=== PATIENT | female | born 1960 | race Caucasian/White ===

== ENCOUNTER 2017-09-01 09:41 | Emergency (ER) | payer SELFPAY ==
[~2017-09-01] VITALS: Ht 172.7 cm; Wt 87.5 kg
[2017-09-01 09:42] VITALS: BP 198/122; PULSE 106; RESP 20; TEMP 98.2; O2SAT 93
[2017-09-01 09:50] VITALS: BP 209/116
[2017-09-01 09:57] VITALS: BP 218/128; PULSE 98; RESP 19; O2SAT 95
[2017-09-01] MEDS ORDERED: CITA20TA4 PO (10:03)
[2017-09-01] MEDS ORDERED: RISP1TAB2 PO (10:03)
[2017-09-01] MEDS ORDERED: RISP4TAB2 PO (10:03)
--- NOTE | 2017-09-01 10:21 | PD ---
HPI Chief Complaint: Hypertension Time Seen by Provider: 09:59 Travel History International Travel<30 days: No Contact w/Intl Traveler<30days: No Traveled to known affect area: No History of Present Illness HPI 57-year-old female presents to the emergency department, sent from [facility], for high blood pressure reading. Patient denies history of hypertension and has never been diagnosed or taken medication. She denies chest pain, shortness of breath, abdominal pain, vomiting, headache, change in vision, focal deficits or weakness, syncope. Denies pain. Has not taken any medications or treatments to alleviate her symptoms. Symptoms are moderate in severity. No known relieving or aggravating factors. Reports occasional alcohol use. Reports occasional smoking pot. Reports tobacco use, pack per day. History of depression, bipolar disorder, schizophrenia. Denies other significant past medical history. No primary care provider. No known allergies. Has no medical complaints. No other modifying factors or associated signs and symptoms. PFSH Past Medical History Bipolar Disorder: Yes Anxiety: Yes Depression: Yes Diminished Hearing: No Immunizations Current: Yes Schizophrenia: Yes ?: Not Past Surgical History Surgical History: No Previous Surgery Social History Alcohol Use: Yes (occ) Tobacco Use: Yes (1 ppd) Substance Use: Yes (maricharleneana) Allergies-Medications (Allergen,Severity, Reaction): Coded Allergies: No Known Allergies (Unverified , 09/01/17) Reported Meds & Prescriptions Reported Meds & Active Scripts Active Norvasc (Amlodipine Besylate) 5 Mg Tab 5 Mg PO DAILY Reported Risperidone 1 Mg Tab 1 Mg PO DAILY Risperidone 4 Mg Tab 4 Mg PO HS Citalopram (Citalopram Hydrobromide) 20 Mg Tab 20 Mg PO DAILY Review of Systems Except as stated in HPI: all other systems reviewed are Neg Physical Exam Narrative GENERAL: Well-nourished, well-developed female patient, in no acute distress SKIN: Warm and dry. HEAD: Atraumatic. Normocephalic. EYES: Pupils equal and round. No scleral icterus. No injection or drainage. ENT: Mucosa pink and moist. Airway patent. NECK: Trachea midline. CARDIOVASCULAR: Regular rate and rhythm. No murmur appreciated. RESPIRATORY: No accessory muscle use. Clear to auscultation. Breath sounds equal bilaterally. GASTROINTESTINAL: Abdomen soft, non-tender, nondistended. Hepatic and splenic margins not palpable. Bowel sounds are active 4 quadrants. MUSCULOSKELETAL: No obvious deformities. No clubbing. No cyanosis. No edema. NEUROLOGICAL: Awake and alert. Oriented 3. No obvious cranial nerve deficits. Motor grossly within normal limits. Normal speech. PSYCHIATRIC: Appropriate mood and affect; insight and judgment normal. Data Data Last Documented VS Vital Signs Date Time Temp Pulse Resp B/P (MAP) Pulse Ox O2 Delivery O2 Flow Rate FiO2 09/01/17 11:01 88 18 184/83 (116) 97 Room Air 09/01/17 09:42 98.2 Orders Orders Electrocardiogram (09/01/17 10:19) Basic Metabolic Panel (Bmp) (09/01/17 10:19) Complete Blood Count With Diff (09/01/17 10:19) Amlodipine (Norvasc) (09/01/17 10:30) Acetaminophen (Tylenol) (09/01/17 11:45) Labs Laboratory Tests Test 09/01/17 10:42 White Blood Count 5.5 TH/MM3 Red Blood Count 5.08 MIL/MM3 Hemoglobin 18.9 GM/DL Hematocrit 53.3 % Mean Corpuscular Volume 105.0 FL Mean Corpuscular Hemoglobin 37.2 PG Mean Corpuscular Hemoglobin Concent 35.5 % Red Cell Distribution Width 15.2 % Platelet Count 284 TH/MM3 Mean Platelet Volume 9.6 FL Neutrophils (%) (Auto) 57.4 % Lymphocytes (%) (Auto) 32.0 % Monocytes (%) (Auto) 9.8 % Eosinophils (%) (Auto) 0.2 % Basophils (%) (Auto) 0.6 % Neutrophils # (Auto) 3.2 TH/MM3 Lymphocytes # (Auto) 1.8 TH/MM3 Monocytes # (Auto) 0.5 TH/MM3 Eosinophils # (Auto) 0.0 TH/MM3 Basophils # (Auto) 0.0 TH/MM3 CBC Comment DIFF FINAL Differential Comment Blood Urea Nitrogen 7 MG/DL Creatinine 0.92 MG/DL Random Glucose 131 MG/DL Calcium Level 9.7 MG/DL Sodium Level 139 MEQ/L Potassium Level 3.8 MEQ/L Chloride Level 101 MEQ/L Carbon Dioxide Level 28.8 MEQ/L Anion Gap 9 MEQ/L Estimat Glomerular Filtration Rate 63 ML/MIN MDM Medical Decision Making Medical Screen Exam Complete: Yes Emergency Medical Condition: Yes Medical Record Reviewed: Yes Differential Diagnosis Hypertension, renal disease, medical clearance Narrative Course 57-year-old female with elevated blood pressure. Blood pressure reading in the ER is 218/128. Patient is asymptomatic. I discussed the patient with Dr. Saini, the attending physician, and he agrees with my plan of care. CBC, BMP, EKG ordered. 1145: Patient Is now complaining of headache; she said she had a headche when she arrived but "forgot to tell" me even though I asked her. Rates headache . Tylenol ordered. Discussed labs with Dr. Saini and he agrees the patient discharged. Discussed lab findings with the patient. Patient to follow up outpatient. Norvasc prescribed for home. Instructed patient to follow up with primary care provider. Patient verbalizes understanding and agreement with treatment plan. Patient is medically cleared and stable for discharge. Discussed reasons to return to the emergency department. Patient agrees with treatment plan. The patients vital signs are stable and the patient is stable for outpatient follow-up and treatment. Patient discharged home, stable and in no acute distress. Diagnosis Primary Impression: High blood pressure Qualified Codes: I10 - Essential (primary) hypertension Referrals: [facility] Primary Care Physician Patient Instructions: General Instructions, Hypertension (ED) Additional Instructions: Take blood pressure medications as prescribed Take blood pressure routinely and log the time and your blood pressure readings ; take your blood pressure log to your primary care provider at your next visit Follow-up with your primary care provider Return to the emergency department immediately with worsening of symptoms Med/Other Pt SpecificInfo: Prescription(s) given Scripts Amlodipine (Norvasc) 5 Mg Tab 5 MG PO DAILY for Blood Pressure Management, #30 TAB 0 Refills Prov: Melissa Todd 09/01/17 Disposition: 01 DISCHARGE HOME Condition: Stable Melissa Todd Sep 01, 2017 10:21
[2017-09-01] MEDS ORDERED: amLODIPine BESYLATE 5 MG TAB PO ONE (10:30)
[2017-09-01] MEDS ORDERED: AMLO5 PO (10:30)
[2017-09-01 10:54] LABS: AUTOMATED NEUTROPHIL # 3.2 TH/MM3 (1.8-7.7); BASOPHIL % 0.6 % (0.0-2.0); EOSINOPHIL % 0.2 % (0.0-4.0); HEMATOCRIT 53.3 % (35.0-46.0); HEMOGLOBIN 18.9 GM/DL (11.6-15.3); LYMPHOCYTE # 1.8 TH/MM3 (1.0-4.8); MEAN CORPUSCULAR HEMOGLOBIN 37.2 PG (27.0-34.0); MEAN CORPUSCULAR HGB CONC 35.5 % (32.0-36.0); MEAN PLATELET VOLUME 9.6 FL (7.0-11.0); MONO % 9.8 % (0.0-8.0); MONOCYTE # 0.5 TH/MM3 (0-0.9); NEUT % 57.4 % (16.0-70.0); PLATELET COUNT 284 TH/MM3 (150-450); RED BLOOD COUNT 5.08 MIL/MM3 (4.00-5.30); RED CELL DISTRIBUTION WIDTH 15.2 % (11.6-17.2); WHITE BLOOD COUNT 5.5 TH/MM3 (4.0-11.0)
[2017-09-01 11:01] VITALS: BP_SYST 184; BP_DIAS 23; BP_DIAS 83; PULSE 88; RESP 18; O2SAT 97
[2017-09-01 11:13] LABS: BICARBONATE 28.8 MEQ/L (21.0-32.0); CALCIUM 9.7 MG/DL (8.5-10.1); CREATININE 0.92 MG/DL (0.50-1.00)
[2017-09-01] MEDS ORDERED: ACETAMINOPHEN 325 MG TAB PO ONE (11:45)
--- NOTE | 2017-09-01 12:47 | EKG ---
Date Performed: 09/01/2017 Time Performed: 10:33:46 PTAGE: 57 years EKG: Sinus rhythm BORDERLINE LEFT AXIS DEVIATION BORDERLINE ECG NO PREVIOUS TRACING DOCTOR: Carlos Sen Interpretating Date/Time 09/01/2017 12:46:10
== END 2017-09-01 12:06 | disposition home or self-care (01) ==
LOC: NEPD 09:41
DX: I10 Essential (primary) hypertension (principal); R94.31 Abnormal electrocardiogram [ECG] [EKG]; F31.9 Bipolar disorder, unspecified; F20.9 Schizophrenia, unspecified; F41.9 Anxiety disorder, unspecified; F17.210 Nicotine dependence, cigarettes, uncomplicated
CPT/HCPCS: 80048; 85025; 93005; 99284

== ENCOUNTER 2017-09-17 10:55 | Observation (INO) | payer SELFPAY ==
[~2017-09-17] VITALS: Ht 172.7 cm; Wt 87.5 kg
[2017-09-17] VITALS (12 sets, daily range): BP systolic 143–193; BP diastolic 88–110; PULSE 82–113; RESP 17–20; TEMP 97.9–99.3; O2SAT 94–98
[~2017-09-17 10:55] MED LIST: AMLO5 PO; CITA20TA4 PO; RISP1TAB2 PO; RISP4TAB2 PO
[2017-09-17] MEDS ORDERED: BENZTROPINE MESYLATE 2 MG/2 ML VIAL IV PUSH ONE ×2 (11:30→12:00)
[2017-09-17 11:39] LABS: AUTOMATED NEUTROPHIL # 6.4 TH/MM3 (1.8-7.7); BASOPHIL # 0.1 TH/MM3 (0-0.2); BASOPHIL % 0.6 % (0.0-2.0); EOSINOPHIL % 0.1 % (0.0-4.0); HEMATOCRIT 51.8 % (35.0-46.0); HEMOGLOBIN 17.9 GM/DL (11.6-15.3); LYMPH % 18.4 % (9.0-44.0); LYMPHOCYTE # 1.6 TH/MM3 (1.0-4.8); MEAN CELL VOLUME 106.3 FL (80.0-100.0); MEAN CORPUSCULAR HEMOGLOBIN 36.7 PG (27.0-34.0); MEAN CORPUSCULAR HGB CONC 34.5 % (32.0-36.0); MEAN PLATELET VOLUME 8.5 FL (7.0-11.0); MONO % 6.2 % (0.0-8.0); MONOCYTE # 0.5 TH/MM3 (0-0.9); NEUT % 74.7 % (16.0-70.0); PLATELET COUNT 253 TH/MM3 (150-450); RED BLOOD COUNT 4.87 MIL/MM3 (4.00-5.30); RED CELL DISTRIBUTION WIDTH 15.6 % (11.6-17.2); WHITE BLOOD COUNT 8.5 TH/MM3 (4.0-11.0)
[2017-09-17 11:46] LABS: INTERNATIONAL NORMALIZED RATIO 1.2 RATIO; PROTHROMBIN TIME - PATIENT 12.2 SEC (9.8-11.6)
--- NOTE | 2017-09-17 12:05 | RADRPT ---
EXAM DATE/TIME: 09/17/2017 11:36 [facility] COMPARISON: No previous studies available for comparison. INDICATIONS : New onset tremors left arm.Right facial droop was observed earlier. RADIATION DOSE: 38.38 CTDIvol (mGy) MEDICAL HISTORY : Hypertension. Schizophrenia SURGICAL HISTORY : None. ENCOUNTER: Initial ACUITY: 3 weeks PAIN SCALE: 0/10 LOCATION: cranial TECHNIQUE: Multiple contiguous axial images were obtained of the head. Using automated exposure control and adj ustment of the mA and/or kV according to patient size, radiation dose was kept as low as reasonably a chievable to obtain optimal diagnostic quality images. DICOM format image data is available electro nically for review and comparison. FINDINGS: CEREBRUM: The ventricles are normal for age. No evidence of midline shift, mass lesion, hemorrhage or acute in farction. No extra-axial fluid collections are seen. POSTERIOR FOSSA: The cerebellum and brainstem are intact. The 4th ventricle is midline. The cerebellopontine angle i s unremarkable. EXTRACRANIAL: The visualized portion of the orbits is intact. SKULL: The calvaria is intact. No evidence of skull fracture. CONCLUSION: Normal examination for a patient of this age. Iván Martinez MD on September 17, 2017 at 12:01 Board Certified Radiologist. This report was verified electronically.
--- NOTE | 2017-09-17 12:26 | RADRPT ---
EXAM DATE/TIME: 09/17/2017 11:57 [facility] COMPARISON: No previous studies available for comparison. INDICATIONS : Tremors in left arm 3 weeks. MEDICAL HISTORY : Hypertension. Schizophrenia SURGICAL HISTORY : None. ENCOUNTER: Initial ACUITY: 1 day PAIN SCORE: 0/10 LOCATION: Bilateral chest FINDINGS: There is a small non-consolidative infiltrate in the lower left lung adjacent to, but not obscuring d izziness of the left hemidiaphragm. The right lung is clear. The heart is normal size. No blunting of the costophrenic angles. CONCLUSION: Subsegmental infiltrate at the left lung base. Tee Mcclain MD on September 17, 2017 at 12:24 Board Certified Radiologist. This report was verified electronically.
--- NOTE | 2017-09-17 12:30 | PD ---
HPI Chief Complaint: Neuro Symptoms/ Deficits Time Seen by Provider: 11:11 Travel History International Travel<30 days: No Contact w/Intl Traveler<30days: No Traveled to known affect area: No History of Present Illness HPI 57-year-old male that presents to the ED for evaluation of possible there is symptoms. Per patient she's had a tremor to her left hand and arm for the past 3 weeks. Per patient she's never had this before. She does have a history of bipolar disorder and schizophrenia and takes multiple psychiatric medications. She states that she went to her doctor today in the hospital in the [facility] clinic and she was sent here for evaluation of this as they noted she also had some facial drop. She denies any medical issues other than hypertension. No chest pain or SOB. No history of CVA. No history of this in the past. States been compliant with her medications. No suicidal or homicidal ideation. No abdominal pain. No pain of any kind. Patient's facial droop is completely resolved if she smiles. Only noticeable when she has a resting face. Unclear if this is chronic for her but per significant other she hasn't had this before. No blurry vision or double vision. No other medical issues. PFSH Past Medical History Bipolar Disorder: Yes Anxiety: Yes Depression: Yes Diminished Hearing: No Hypertension: Yes Immunizations Current: Yes Schizophrenia: Yes Social History Alcohol Use: Yes (occ) Tobacco Use: Yes (1 ppd) Substance Use: Yes (THC on occasion) Allergies-Medications (Allergen,Severity, Reaction): Coded Allergies: No Known Allergies (Unverified , 09/01/17) Reported Meds & Prescriptions Reported Meds & Active Scripts Active Norvasc (Amlodipine Besylate) 5 Mg Tab 5 Mg PO DAILY Reported Risperidone 4 Mg Tab 4 Mg PO HS Citalopram (Citalopram Hydrobromide) 20 Mg Tab 20 Mg PO DAILY Review of Systems Except as stated in HPI: all other systems reviewed are Neg Physical Exam Narrative GENERAL: SKIN: Warm and dry. HEAD: Atraumatic. Normocephalic. EYES: Pupils equal and round. No scleral icterus. No injection or drainage. ENT: No nasal bleeding or discharge. Mucous membranes pink and moist. Tongue is midline. No uvula deviation. Cranial nerves intact, facial drop noted only when patient rests her face. Smiling and frowning does not provide any deficits , unclear if this is chronic. NECK: Trachea midline. No JVD. CARDIOVASCULAR: Regular rate and rhythm. No murmurs, S3, S4. RESPIRATORY: No accessory muscle use. Clear to auscultation. Breath sounds equal bilaterally. GASTROINTESTINAL: Abdomen soft, non-tender, nondistended. Hepatic and splenic margins not palpable. MUSCULOSKELETAL: Extremities without clubbing, cyanosis, or edema. No obvious deformities. Full range of motion of the upper and lower extremities bilaterally. 2+ pulses bilaterally. tremor noted to the left and right arm. Appears to worsen with movement. More noticeable on left arm. NEUROLOGICAL: Awake and alert. No obvious cranial nerve deficits. Motor grossly within normal limits. Five out of 5 muscle strength in the arms and legs. Normal speech. PSYCHIATRIC: Appropriate mood and affect; insight and judgment normal. Data Data Last Documented VS Vital Signs Date Time Temp Pulse Resp B/P (MAP) Pulse Ox O2 Delivery O2 Flow Rate FiO2 09/17/17 12:39 18 97 Room Air 09/17/17 11:12 100 09/17/17 10:56 97.9 Orders Orders Electrocardiogram (09/17/17 11:17) Complete Blood Count With Diff (09/17/17 11:17) Comprehensive Metabolic Panel (09/17/17 11:17) Ckmb (Isoenzyme) Profile (09/17/17 11:17) Troponin I (09/17/17 11:17) Prothrombin Time / Inr (Pt) (09/17/17 11:17) Act Partial Throm Time (Ptt) (09/17/17 11:17) Magnesium (Mg) (09/17/17 11:17) Thyroid Stimulating Hormone (09/17/17 11:17) Chest, Single Ap (09/17/17 11:17) Ct Brain W/O Iv Contrast(Rout) (09/17/17 11:17) Iv Access Insert/Monitor (09/17/17 11:17) Ecg Monitoring (09/17/17 11:17) Oximetry (09/17/17 11:17) Benztropine Inj (Cogentin Inj) (09/17/17 11:30) Benztropine Inj (Cogentin Inj) (09/17/17 12:00) CKMB (09/17/17 11:24) CKMB% (09/17/17 11:24) Sodium Chlor 0.9% 1000 Ml Inj (Ns 1000 M (09/17/17 13:00) Potassium Chloride (Kcl) (09/17/17 13:00) Admit Order (Ed Use Only) (09/17/17 14:13) Labs Laboratory Tests Test 09/17/17 11:24 White Blood Count 8.5 TH/MM3 Red Blood Count 4.87 MIL/MM3 Hemoglobin 17.9 GM/DL Hematocrit 51.8 % Mean Corpuscular Volume 106.3 FL Mean Corpuscular Hemoglobin 36.7 PG Mean Corpuscular Hemoglobin Concent 34.5 % Red Cell Distribution Width 15.6 % Platelet Count 253 TH/MM3 Mean Platelet Volume 8.5 FL Neutrophils (%) (Auto) 74.7 % Lymphocytes (%) (Auto) 18.4 % Monocytes (%) (Auto) 6.2 % Eosinophils (%) (Auto) 0.1 % Basophils (%) (Auto) 0.6 % Neutrophils # (Auto) 6.4 TH/MM3 Lymphocytes # (Auto) 1.6 TH/MM3 Monocytes # (Auto) 0.5 TH/MM3 Eosinophils # (Auto) 0.0 TH/MM3 Basophils # (Auto) 0.1 TH/MM3 CBC Comment DIFF FINAL Differential Comment Prothrombin Time 12.2 SEC Prothromb Time International Ratio 1.2 RATIO Activated Partial Thromboplast Time 24.4 SEC Blood Urea Nitrogen 8 MG/DL Creatinine 1.23 MG/DL Random Glucose 131 MG/DL Total Protein 7.9 GM/DL Albumin 3.1 GM/DL Calcium Level 8.6 MG/DL Magnesium Level 1.3 MG/DL Alkaline Phosphatase 135 U/L Aspartate Amino Transf (AST/SGOT) 145 U/L Alanine Aminotransferase (ALT/SGPT) 104 U/L Total Bilirubin 1.3 MG/DL Sodium Level 136 MEQ/L Potassium Level 3.2 MEQ/L Chloride Level 99 MEQ/L Carbon Dioxide Level 26.3 MEQ/L Anion Gap 11 MEQ/L Estimat Glomerular Filtration Rate 45 ML/MIN Total Creatine Kinase 121 U/L Creatine Kinase MB 1.8 NG/ML Troponin I LESS THAN 0.02 NG/ML Thyroid Stimulating Hormone 3rd Gen 0.842 uIU/ML MDM Medical Decision Making Medical Screen Exam Complete: Yes Emergency Medical Condition: Yes Medical Record Reviewed: Yes Interpretation(s) CBC & BMP Diagram 09/17/17 11:24 Total Protein 7.9, Albumin 3.1 L, Calcium Level 8.6, Magnesium Level 1.3 L, Alkaline Phosphatase 135 H, Aspartate Amino Transf (AST/SGOT) 145 H, Alanine Aminotransferase (ALT/SGPT) 104 H, Total Bilirubin 1.3 H Last Impressions Head CT 09/17/[id number] Signed Impressions: Service Date/Time: Sunday, September 17, 2017 11:36 - CONCLUSION: Normal examination for a patient of this age. Iván Martinez MD Chest X-Ray [id number]/17/[id number] Signed Impressions: Service Date/Time: Sunday, September 17, 2017 11:57 - CONCLUSION: Subsegmental infiltrate at the left lung base. Tee Mcclain MD troponin and CKMB negative TSH WNL Differential Diagnosis Dyskinesia versus tremor versus CVA versus neuropathy versus paresthesia versus essential tremor versus Parkinson's versus medication side effect Narrative Course 57-year-old female that presents to the ED for evaluation of tremor and possible facial droop. Patient was properly examined and was found to have signs and symptoms for several tremor. Suspected this may be related to her antipsychotics. She does appear to have some facial droop but this appears to be chronic for her. She is able to smile and frown with no deficits. No cranial nerve deficits and the only time I can find the facial droop is whenever she has her resting phase. Per significant other this is new. Could potentially be early Allen's palsy. Regardless of the recommend labs and imaging to rule out any sign of acute disease. Labs and imaging were ordered. My attending recommends 1 mg IV of cogentin to see if it will improve symptoms. Labs and imaging came back negative for acute disease. Patient still having significant tremor. Unclear as to the right facial droop. Again patient only had symptoms since she is resting. Otherwise she does not have the droop. Otherwise she is neurovascularly intact. My attending Dr Byrd recommends admitting for further eval and neuro consult. Dr Lee agrees to admission. Diagnosis Primary Impression: Tremor of both hands Additional Impression: Facial droop Admitting Information Admitting Physician Requests: Rashawn Pratt Sep 17, 2017 12:29
[2017-09-17 12:34] LABS: ALBUMIN 3.1 GM/DL (3.4-5.0); ALKALINE PHOSPHATASE 135 U/L (45-117); ALT (GPT) 104 U/L (10-53); AST (GOT) 145 U/L (15-37); BICARBONATE 26.3 MEQ/L (21.0-32.0); BLOOD UREA NITROGEN 8 MG/DL (7-18); CALCIUM 8.6 MG/DL (8.5-10.1); CHLORIDE 99 MEQ/L (98-107); CREATININE 1.23 MG/DL (0.50-1.00); GLOMERULAR FILTRATION RATE 45 ML/MIN (>89); GLUCOSE,RANDOM 131 MG/DL (74-106); MAGNESIUM 1.3 MG/DL (1.5-2.5); SODIUM (NA) 136 MEQ/L (136-145); TOTAL BILIRUBIN ADULT 1.3 MG/DL (0.2-1.0); TOTAL PROTEIN 7.9 GM/DL (6.4-8.2); TROPONIN I LESS THAN 0.02 NG/ML (0.02-0.05)
[2017-09-17] MEDS ORDERED: SODIUM CHLOR 0.9% 1000 ML INJ 1,000 ML IV ONE (13:00)
[2017-09-17] MEDS ORDERED: POTASSIUM CHLORIDE 20 MEQ CONTROLLED RELEASE TAB PO ONE ×2 (13:00→14:45)
--- NOTE | 2017-09-17 14:55 | RADRPT ---
EXAM DATE/TIME: 09/17/2017 14:22 [facility] COMPARISON: No previous studies available for comparison. INDICATIONS : Transient ischemic attack. MEDICAL HISTORY : Hypertension. Schizophrenia. Bioplar disorder. Anxiety. Depression. Substance use. Tobacco use. SURGICAL HISTORY : None. ENCOUNTER: Initial ACUITY: 1 day PAIN SCORE: 0/10 LOCATION: Bilateral neck PEAK SYSTOLIC VELOCITIES (cm/sec): ICA/CCA RATIO: Right: 1.4 Left: 1.0 ICA: Right: 88.2 Left: 80.1 CCA: Right: 62.2 Left: 78.5 ECA: Right: 55.6 Left: 96.8 VERTEBRAL: Right: 47.9 antegrade Left: 32.8 antegrade Elevated flow velocities and ICA/CCA ratios have been found to correlate with increased degrees of vessel stenosis, calculated as percentage of diameter relative to a normal segment of distal ICA/CCA FINDINGS: RIGHT CAROTID: No significant stenosis is visualized. The waveforms are within normal limits. LEFT CAROTID: No significant stenosis is visualized. The waveforms are within normal limits. VERTEBRAL ARTERIES: Antegrade flow is seen in both vertebral arteries. MISCELLANEOUS: None. CONCLUSION: No evidence of flow-limiting carotid stenosis. Roby Knapp MD on September 17, 2017 at 14:53 Board Certified Radiologist. This report was verified electronically.
--- NOTE | 2017-09-17 14:58 | HHI.HP ---
HPI Service [facility] ([place], [place])ists Primary Care Physician No Primary Care Physician Admission Diagnosis tremor, right facial drop, unknown etiology Diagnoses: Travel History International Travel<30 Days: No Contact w/Intl Traveler <30 Da: No Traveled to Known Affected Are: No History of Present Illness Patient is a 57-year-old female with past medical history of schizophrenia, hypertension, bipolar disorder presented to the emergency room for left-sided tremors 3 weeks. She follows at the [facility]. There, they noted that she had a right-sided drooping of her face. Patient was instructed to come to the emergency room for further evaluation. Upon questioning, she tells me that my left arm is shaking out of control. She denies any changes to her medications. She is from [place] and recently moved here. She is being followed as [facility] by a an MAGNETIC TESTING TECHNICIAN who refills her medications. She states that she has been taking her medications regularly and no longer has auditory or visual hallucinations. She notes that whenever she lifts her arm the movements decreased however at rest the movements are a lot worse. Nothing is noted on the right arm. She did not note the facial droop. She denies any change in her vision or blurriness. Denies any nausea vomiting, chest pain or shortness of breath, rash increased urinary frequency or burning with urination. Review of Systems Except as stated in HPI: all other systems reviewed are Neg Past Family Social History Past Medical History schizophrenia, hypertension, bipolar disorder Past Surgical History No surgery Reported Medications Reported Meds & Active Scripts Active Norvasc (Amlodipine Besylate) 5 Mg Tab 5 Mg PO DAILY Reported Risperidone 4 Mg Tab 4 Mg PO HS Citalopram (Citalopram Hydrobromide) 20 Mg Tab 20 Mg PO DAILY Allergies: Coded Allergies: No Known Allergies (Unverified , 09/01/17) Family History Patient states that both her parents were healthy. Social History States she smokes a pack a day for the past 40 years. Denies illegal drug use. Drinks alcohol occasionally Physical Exam Vital Signs Vital Signs Date Time Temp Pulse Resp B/P (MAP) Pulse Ox O2 Delivery O2 Flow Rate FiO2 09/17/17 12:39 18 97 Room Air 09/17/17 11:12 100 18 168/88 (114) 98 Room Air 09/17/17 11:07 103 18 96 Room Air 09/17/17 10:56 97.9 113 20 157/109 (125) 96 Room Air Physical Exam GENERAL: Laying in bed, appears comfortable SKIN: No rashes, ecchymoses or lesions. Cool and dry. HEAD: Atraumatic. Normocephalic. No temporal or scalp tenderness. EYES: Pupils equal round and reactive. Extraocular motions intact. No scleral icterus. No injection or drainage. ENT: Nose without drainage. Airway patent. NECK: Trachea midline. CARDIOVASCULAR: Regular rate and rhythm without murmurs RESPIRATORY: Clear to auscultation. Breath sounds equal bilaterally. No wheezes GASTROINTESTINAL: Abdomen soft, non-tender, nondistended. No guarding. MUSCULOSKELETAL: Resting tremors noted on the left arm. Currently none on the right arm. With movement the tremors do seem to slow down but are still present. I do note right sided drooping whenever patient is not smiling however all cranial nerves otherwise seems to be okay. Extremities without edema. No joint tenderness, effusion, or edema noted. No calf tenderness. Negative Homans sign bilaterally. NEUROLOGICAL: Awake and alert. Cranial nerves II through XII intact. Motor and sensory grossly within normal limits. Normal speech. Laboratory Laboratory Tests Test 09/17/17 11:24 White Blood Count 8.5 Red Blood Count 4.87 Hemoglobin 17.9 Hematocrit 51.8 Mean Corpuscular Volume 106.3 Mean Corpuscular Hemoglobin 36.7 Mean Corpuscular Hemoglobin Concent 34.5 Red Cell Distribution Width 15.6 Platelet Count 253 Mean Platelet Volume 8.5 Neutrophils (%) (Auto) 74.7 Lymphocytes (%) (Auto) 18.4 Monocytes (%) (Auto) 6.2 Eosinophils (%) (Auto) 0.1 Basophils (%) (Auto) 0.6 Neutrophils # (Auto) 6.4 Lymphocytes # (Auto) 1.6 Monocytes # (Auto) 0.5 Eosinophils # (Auto) 0.0 Basophils # (Auto) 0.1 CBC Comment DIFF FINAL Differential Comment Prothrombin Time 12.2 Prothromb Time International Ratio 1.2 Activated Partial Thromboplast Time 24.4 Blood Urea Nitrogen 8 Creatinine 1.23 Random Glucose 131 Total Protein 7.9 Albumin 3.1 Calcium Level 8.6 Magnesium Level 1.3 Alkaline Phosphatase 135 Aspartate Amino Transf (AST/SGOT) 145 Alanine Aminotransferase (ALT/SGPT) 104 Total Bilirubin 1.3 Sodium Level 136 Potassium Level 3.2 Chloride Level 99 Carbon Dioxide Level 26.3 Anion Gap 11 Estimat Glomerular Filtration Rate 45 Total Creatine Kinase 121 Creatine Kinase MB 1.8 Troponin I LESS THAN 0.02 Thyroid Stimulating Hormone 3rd Gen 0.842 Result Diagram: 09/17/17 1124 09/17/17 1124 Imaging Last Impressions Head CT 09/17/17 111 Signed Impressions: Service Date/Time: Sunday, September 17, 2017 11:36 - CONCLUSION: Normal examination for a patient of this age. Iván Martinez MD Chest X-Ray [id number]/17/[id number] Signed Impressions: Service Date/Time: Sunday, September 17, 2017 11:57 - CONCLUSION: Subsegmental infiltrate at the left lung base. Tee Mcclain MD Caprini VTE Risk Assessment Caprini VTE Risk Assessment: Mod/High Risk (score >= 2) Caprini Risk Assessment Model Point Value = 1 Point Value = 2 Point Value = 3 Point Value = 5 Age 41-60 Minor surgery BMI > 25 kg/m2 Swollen legs Varicose veins or History of unexplained or recurrent spontaneous Oral contraceptives or hormone replacement Sepsis (< 1 month) Serious lung disease, including pneumonia (< 1 month) Abnormal pulmonary function Acute myocardial infarction Congestive heart failure (< 1 month) History of inflammatory bowel disease Medical patient at bed rest Age 61-74 Arthroscopic surgery Major open surgery (> 45 min) Laparoscopic surgery (> 45 min) Malignancy Confined to bed (> 72 hours) Immobilizing plaster cast Central venous access Age >= 75 History of VTE Family history of VTE Factor V Leiden Prothrombin [id number] Lupus anticoagulant Anticardiolipin antibodies Elevated serum homocysteine Heparin-induced thrombocytopenia Other congenital or acquired thrombophilia Stroke (< 1 month) Elective arthroplasty Hip, pelvis, or leg fracture Acute spinal cord injury (< 1 month) Prophylaxis Regimen Total Risk Factor Score Risk Level Prophylaxis Regimen 0-1 Low Early ambulation 2 Moderate Order ONE of the following: *Sequential Compression Device (SCD) *Heparin 5000 units SQ BID 3-4 Higher Order ONE of the following medications: *Heparin 5000 units SQ TID *Enoxaparin/Lovenox 40 mg SQ daily (WT < 150 kg, CrCl > 30 mL/min) *Enoxaparin/Lovenox 30 mg SQ daily (WT < 150 kg, CrCl > 10-29 mL/min) *Enoxaparin/Lovenox 30 mg SQ BID (WT < 150 kg, CrCl > 30 mL/min) AND/OR *Sequential Compression Device (SCD) 5 or more Highest Order ONE of the following medications: *Heparin 5000 units SQ TID (Preferred with Epidurals) *Enoxaparin/Lovenox 40 mg SQ daily (WT < 150 kg, CrCl > 30 mL/min) *Enoxaparin/Lovenox 30 mg SQ daily (WT < 150 kg, CrCl > 10-29 mL/min) *Enoxaparin/Lovenox 30 mg SQ BID (WT < 150 kg, CrCl > 30 mL/min) AND *Sequential Compression Device (SCD) Assessment and Plan Assessment and Plan Resting tremors:x 3 weeks. new to patient. never seen a neurologist. Takes risperidone and citalopram at home. Risperidone could be the culprit as it appears that one of the side effects would be tremors. Therefore I will hold this medication. In addition, citalopram also may cause tremors. Will hold. TIA vs CVA: pt does have right facial droop noted today at clinic. CVA work-up in progress. CT head neg. MRI/carotic u/s/MRA/2D echo ordered. neuro eval in place. ? ortega's palsy. head of bed flat for now. Permissive HTN. prn BP meds available. neuro checks. on ASA . bedside swallow eval and PT ordered. DVT proph: scd Code Status full Discussed Condition With patient/ER physician Edda Mejia MD Sep 17, 2017 14:58
[2017-09-17] MEDS ORDERED: amLODIPine BESYLATE 5 MG TAB PO ONE (16:30)
--- NOTE | 2017-09-17 16:33 | EKG ---
Date Performed: 09/17/2017 Time Performed: 12:19:57 PTAGE: 57 years EKG: Sinus rhythm BORDERLINE LEFT AXIS DEVIATION BORDERLINE ECG PREVIOUS TRACING : 09/01/2017 10.33 No significant change from previous tracing noted. DOCTOR: Roosevelt Martinez Interpretating Date/Time 09/17/2017 16:31:11
--- NOTE | 2017-09-17 16:42 | ECHRPT ---
Indication: CONCLUSIONS Normal left ventricular size. The left ventricular systolic function is normal with an estimated ejection fraction in the range of 55-60%. Mild mitral valve regurgitation. There is mild tricuspid valve regurgitation. The pulmonary valve is not well visualized. BP: / HR: Rhythm: MEASUREMENTS (Male / Female) Normal Values Technical Quality:Very technically difficult study 2D ECHO LV Diastolic Diameter PLAX 4.1 cm 4.2 - 5.9 / 3.9 - 5.3 cm LV Systolic Diameter PLAX 3.1 cm IVS Diastolic Thickness 1.2 cm 0.6 - 1.0 / 0.6 - 0.9 cm LVPW Diastolic Thickness 1.1 cm 0.6 - 1.0 / 0.6 - 0.9 cm LV Relative Wall Thickness 0.6 RV Internal Dim ED PLAX 2.6 cm M-MODE Aortic Root Diameter MM 3.4 cm LA Systolic Diameter MM 3.0 cm LA Ao Ratio MM 0.9 AV Cusp Separation MM 2.2 cm DOPPLER Mitral E Point Velocity 63.2 cm/s Mitral A Point Velocity 87.4 cm/s Mitral E to A Ratio 0.7 LV E' Lateral Velocity 10.8 cm/s Mitral E to LV E' Lateral Ratio 5.9 LV E' Septal Velocity 6.3 cm/s Mitral E to LV E' Septal Ratio 10.0 FINDINGS LEFT VENTRICLE Normal left ventricular size. The left ventricular systolic function is normal with an estimated ejection fraction in the range of 55-60%. RIGHT VENTRICLE Normal right ventricular size and systolic function. LEFT ATRIUM The left atrial size is normal. RIGHT ATRIUM The right atrial size is normal. ATRIAL SEPTUM Normal atrial septal thickness without atrial level shunting by limited color doppler interrogation. AORTA The aortic root and proximal ascending aorta are normal in size on limited imaging. MITRAL VALVE Structurally normal mitral valve. Mild mitral valve regurgitation. AORTIC VALVE Trileaflet aortic valve. No aortic valve stenosis or regurgitation. TRICUSPID VALVE Structurally normal tricuspid valve. There is mild tricuspid valve regurgitation. PULMONARY VALVE The pulmonary valve is not well visualized. VESSELS The inferior vena cava is normal in size. PERICARDIUM No pericardial effusion. Carlos Sen MD, FACC (Electronically Signed) Final Date:17 September 2017 16:41
[2017-09-17] MEDS ORDERED: ENALAPRILAT 1.25 MG/ML VIAL IV PUSH PRN (19:00)
[2017-09-17] MEDS ORDERED: risperiDONE 1 MG TAB PO SCH (21:00)
[2017-09-17 21:26] LABS: TROPONIN I 0.15 NG/ML (0.02-0.05)
[2017-09-18] VITALS (9 sets, daily range): BP systolic 137–172; BP diastolic 84–98; PULSE 71–89; RESP 16–18; TEMP 97.7–98.2; O2SAT 94–97
[2017-09-18 01:06] LABS: TROPONIN I 0.13 NG/ML (0.02-0.05)
[2017-09-18] MEDS: amLODIPine BESYLATE 5 MG TAB PO SCH (08:33)
[2017-09-18] MEDS: ASPIRIN 81 MG CHEW TAB PO SCH (08:39)
[2017-09-18] MEDS ORDERED: CITALOPRAM HYDROBROMIDE 20 MG TAB PO SCH (09:00)
--- NOTE | 2017-09-18 09:04 | PD.CONS ---
HPI Service cardiology Consult Requested By Reason for Consult elevated troponin Primary Care Physician No Primary Care Physician History of Present Illness This is a 57 yo WF with HTN, schizophrenia, bipolar disorder and no prior cardiac history who presents with L upper arm tremors x 3 weeks. She is followed by mental health practitioner in outpatient setting on a regular basis and found to have a R facial droop yesterday; she was then directed to the ED. She has noticed her L arm began to tremor at rest 3 weeks ago. No chest pain, sob or palpitations EKG and echo are unremarkable. Troponins have increased from 0.02--0.15--0.13 (Randi Todd) Review of Systems Consitutional: DENIES: Fatigue, Fever, Chills, Weight gain, Weight loss Respiratory: DENIES: Cough, Snoring, Shortness of breath, Wheezing, Sputum production Cardiovascular: DENIES: Chest pain, Palpitations, Syncope, Tachycardia Gastrointestinal: DENIES: Nausea, Vomiting, Change in bowel habits, Reflux, Bloody stools, Melena (Rnadi Todd) Past Family Social History Allergies: Coded Allergies: No Known Allergies (Unverified , 09/01/17) Past Medical History schizophrenia, hypertension, bipolar disorder Past Surgical History No surgery Reported Medications Reported Meds & Active Scripts Active Norvasc (Amlodipine Besylate) 5 Mg Tab 5 Mg PO DAILY Reported Risperidone 4 Mg Tab 4 Mg PO HS Citalopram (Citalopram Hydrobromide) 20 Mg Tab 20 Mg PO DAILY Active Ordered Medications Current Medications Medications (Trade) Dose Ordered Sig/Evelin Route Start Time Stop Time Status Last Admin (Aspirin Chew) 81 mg DAILY PO 09/18/17 09:00 09/18/17 08:39 (Norvasc) 5 mg DAILY PO 09/18/17 09:00 09/18/17 08:33 (Vasotec Inj) 1.25 mg Q4H PRN IV PUSH 09/17/17 19:00 Family History Patient states that both her parents were healthy. Social History States she smokes a pack a day for the past 40 years. Denies illegal drug use. Drinks alcohol occasionally (Randi Todd) Physical Exam Vital Signs Vital Signs Date Time Temp Pulse Resp B/P (MAP) Pulse Ox O2 Delivery O2 Flow Rate FiO2 09/18/17 04:31 89 09/18/17 04:10 98.2 82 17 137/91 (106) 94 09/18/17 00:15 78 09/17/17 23:19 98.6 82 18 180/93 (122) 96 09/17/17 20:05 83 09/17/17 20:03 98.2 82 17 143/95 (111) 95 09/17/17 18:14 170/100 (123) 09/17/17 18:08 190/104 (132) 09/17/17 16:14 88 09/17/17 15:53 184/110 (134) 09/17/17 15:52 99.3 89 20 94 09/17/17 15:49 193/109 (137) 09/17/17 15:49 179/107 (131) 09/17/17 12:39 18 97 Room Air 09/17/17 11:12 100 18 168/88 (114) 98 Room Air 09/17/17 11:07 103 18 96 Room Air 09/17/17 10:56 97.9 113 20 157/109 (125) 96 Room Air Physical Exam GENERAL: SKIN: Warm and dry. HEAD: Atraumatic. Normocephalic. EYES: Pupils equal and round. No scleral icterus. No injection or drainage. ENT: No nasal bleeding or discharge. Mucous membranes pink and moist. NECK: Trachea midline. No JVD. CARDIOVASCULAR: Regular rate and rhythm. no murmurs RESPIRATORY: No accessory muscle use. Clear to auscultation. Breath sounds equal bilaterally. GASTROINTESTINAL: Abdomen soft, non-tender, nondistended. Hepatic and splenic margins not palpable. MUSCULOSKELETAL: Extremities without clubbing, cyanosis, or edema. No obvious deformities. NEUROLOGICAL: Awake and alert. Normal speech. R-sided facial droop, persistent LUE resting tremor PSYCHIATRIC: Appropriate mood and affect; insight and judgment normal. Laboratory Laboratory Tests Test 09/17/17 11:24 09/17/17 18:40 09/18/17 00:15 09/18/17 07:55 White Blood Count 8.5 Red Blood Count 4.87 Hemoglobin 17.9 Hematocrit 51.8 Mean Corpuscular Volume 106.3 Mean Corpuscular Hemoglobin 36.7 Mean Corpuscular Hemoglobin Concent 34.5 Red Cell Distribution Width 15.6 Platelet Count 253 Mean Platelet Volume 8.5 Neutrophils (%) (Auto) 74.7 Lymphocytes (%) (Auto) 18.4 Monocytes (%) (Auto) 6.2 Eosinophils (%) (Auto) 0.1 Basophils (%) (Auto) 0.6 Neutrophils # (Auto) 6.4 Lymphocytes # (Auto) 1.6 Monocytes # (Auto) 0.5 Eosinophils # (Auto) 0.0 Basophils # (Auto) 0.1 CBC Comment DIFF FINAL Differential Comment Prothrombin Time 12.2 Prothromb Time International Ratio 1.2 Activated Partial Thromboplast Time 24.4 Blood Urea Nitrogen 8 Creatinine 1.23 Random Glucose 131 Total Protein 7.9 Albumin 3.1 Calcium Level 8.6 Magnesium Level 1.3 Alkaline Phosphatase 135 Aspartate Amino Transf (AST/SGOT) 145 Alanine Aminotransferase (ALT/SGPT) 104 Total Bilirubin 1.3 Sodium Level 136 Potassium Level 3.2 Chloride Level 99 Carbon Dioxide Level 26.3 Anion Gap 11 Estimat Glomerular Filtration Rate 45 Total Creatine Kinase 121 95 71 Creatine Kinase MB 1.8 Troponin I LESS THAN 0.02 0.15 0.13 Thyroid Stimulating Hormone 3rd Gen 0.842 (Randi Todd) Result Diagram: 09/17/17 1124 09/17/17 1124 Imaging Last [address] 09/17/17 1117 Signed Impressions: Service Date/Time: Sunday, September 17, 2017 11:36 - CONCLUSION: Normal examination for a patient of this age. Iván Martinez MD Chest X-Ray 09/17/17 1117 Signed Impressions: Service Date/Time: Sunday, September 17, 2017 11:57 - CONCLUSION: Subsegmental infiltrate at the left lung base. Tee Mcclain MD (Randi Todd) Assessment and Plan Problem List: (1) HTN (hypertension) ICD Codes: I10 - Essential (primary) hypertension (2) Elevated troponin ICD Codes: R74.8 - Abnormal levels of other serum enzymes Assessment and Plan This is a 57 yo WF with HTN, schizophrenia, bipolar disorder and no prior cardiac history who presents with L upper arm tremors x 3 weeks. She is followed by mental health practitioner in outpatient setting on a regular basis and found to have a R facial droop yesterday; she was then directed to the ED. troponin elevation- intermediate. no chest pain. no events on telemetry EKG does not show concerning ST segment or T wave changes, normal QTc echo= normal EF likely demand mediated facial droop- TIA vs. CVA vs. Allen's palsy head CT unremarkable, due to have MRI today no carotid stenosis hypomagnesemia and hypokalemia CXR- left lung infiltrate (Randi Todd) Assessment and Plan lexiscan if neg, med mgt if moderately abnormal, LHC (Carlos Sen MD) Randi Todd Sep 18, 2017 09:04 Carlos Sen MD Sep 18, 2017 11:40
[2017-09-18 09:07] LABS: TROPONIN I 0.06 NG/ML (0.02-0.05)
--- NOTE | 2017-09-18 11:20 | HHI.PR ---
Subjective Remarks Follow up tremor, elevated troponin. Patient states that the tremor in her left upper extremity is unchanged. No headache, vision changes, chest pain, dyspnea. Objective Vitals Vital Signs Date Time Temp Pulse Resp B/P (MAP) Pulse Ox O2 Delivery O2 Flow Rate FiO2 09/18/17 08:56 97.9 88 18 159/93 (115) 95 Manual Cuff/Auscultation 09/18/17 04:31 89 09/18/17 04:10 98.2 82 17 137/91 (106) 94 09/18/17 00:15 78 09/17/17 23:19 98.6 82 18 180/93 (122) 96 09/17/17 20:05 83 09/17/17 20:03 98.2 82 17 143/95 (111) 95 09/17/17 18:14 170/100 (123) 09/17/17 18:08 190/104 (132) 09/17/17 16:14 88 09/17/17 15:53 184/110 (134) 09/17/17 15:52 99.3 89 20 94 09/17/17 15:49 193/109 (137) 09/17/17 15:49 179/107 (131) 09/17/17 12:39 18 97 Room Air I/O 09/17/17 09/17/17 09/17/17 09/18/17 09/18/17 09/18/17 07:00 15:00 23:00 07:00 15:00 23:00 Intake Total 1360 ml 0 ml Balance 1360 ml 0 ml Intake Oral 360 ml 0 ml IV Total 1000 ml # Voids 2 0 # Bowel Movements 0 Result Diagram: 09/17/17 1124 09/17/17 1124 Imaging Last Impressions Head CT 09/17/17 1117 Signed Impressions: Service Date/Time: Sunday, September 17, 2017 11:36 - CONCLUSION: Normal examination for a patient of this age. Iván Martinez MD Chest X-Ray 09/17/17 1117 Signed Impressions: Service Date/Time: Sunday, September 17, 2017 11:57 - CONCLUSION: Subsegmental infiltrate at the left lung base. Tee Mcclain MD Carotid Artery Ultrasound 09/17/17 0000 Signed Impressions: Service Date/Time: Sunday, September 17, 2017 14:22 - CONCLUSION: No evidence of flow-limiting carotid stenosis. Roby Knapp MD Objective Remarks General: Obese female in no acute distress. Heart: Regular rate and rhythm. No murmur. Lungs: Clear to auscultation bilaterally. No wheezes, rales, or rhonchi. Breathing is nonlabored. Abdomen: Soft, nontender, nondistended. Extremities: No lower extremity edema. Left upper extremity resting tremor noted. Psych: Alert and oriented. Procedures None Urinary Catheter: No Vascular Central Line Catheter: No A/P Assessment and Plan 1. Resting tremor: Neurology consult pending. Possibly secondary to risperidone, citalopram. These medications are on hold. Will consult psychiatry for assistance with management of schizophrenia, bipolar disorder. Started on Sinemet. 2. Elevated troponin: Appreciate cardiology recommendations. Patient is denying chest pain. Continue aspirin. 3. TIA versus CVA: Patient had right facial droop noted prior to presentation to the ER. Appreciate neurology recommendations. Carotid artery ultrasound is negative. Head CT is negative. MRI/MRA ordered. 4. Hypertension: Continue amlodipine. 5. DVT prophylaxis: SCDs. Jarrett Braden MD Sep 18, 2017 11:20
[2017-09-18] MEDS: CARBIDOPA/LEVODOPA 25 MG/100 MG TAB PO SCH ×3 (11:45→17:20)
--- NOTE | 2017-09-18 12:13 | MB ---
cc: IDALMIS SANCHEZ M.D. DATE OF CONSULTATION: 09/18/2017. REASON FOR CONSULTATION: This is a 57-year-old being evaluated neurologically because of left hand tremoring. HISTORY OF PRESENT ILLNESS: The tremor has been present for approximately three weeks. She has no leg tremor. She has a psychiatric history and is taking what appears to be risperidone for a total 5 milligrams a day. She follows with Graham Saavedra. History of hypertension. When she says she takes risperidone 4 milligrams evenings and 1 milligram in the morning. Apparently also on citalopram. She is awake, alert, pleasant, cooperative. She is oriented and seems to be in good spirits. Ocular movements and visual laird full. There was a question of some left facial weakness but I observed none at the time of my exam. Tongue and palate move well. Left hand rigidity with nearly continuous tremoring that extends to the more proximal limb. The tremor can be improved with hand/arm mobility for a brief period of time. No tumor in the legs. I did not ambulate the patient. Reflexes present, 1+, and plantar responses were flexor. LABORATORY DATA: The laboratory data was reviewed including a CBC and a chemistry. Mild renal dysfunction with creatinine 1.23. Moderate elevation of AST and ALT. CPK is normal. IMAGING STUDIES: CT showing normal findings. Carotid ultrasound normal. ASSESSMENT: Left upper extremity Parkinsonian syndrome. Evidently the long-term use of risperidone is either the cause or an aggravating factor but she needs psychiatric followup and I am going to add some carbidopa / levodopa to see if this is of additional benefit for tremor management. She can be followed in the office. Thank you for asking us to assist in her care. MD CUCO Aguero/BEN /10:06 AM /12:02 PM
--- NOTE | 2017-09-18 12:36 | PD.PSY.CON ---
Provisional Diagnosis Admission Date Sep 17, 2017 at 14:15 [place] I. 1. History of schizophrenia, presently stable 2. Rule out drug-induced parkinsonism [place] II. Deferred History of Present Illness Service Psychiatry Consult Requested By Dr. Braden Reason for Consult Tremor, possibly due to psych meds. Primary Care Physician No Primary Care Physician HPI Ms. Gabriel is a 57-year-old female with a reported history of schizophrenia who was referred by her outpatient mental health provider to the ED for tremor and facial droop. She has been medically admitted to the CDU and has been seen by neurology. Reviewing the electronic medical record, I see no previous psychiatric contact within our system. Patient seen and examined. Chart reviewed. Case discussed with nurse. On my examination today, the patient relates that the left arm shaking started about 3 weeks ago without clear trigger. The tremor has been worsening and is not suppressible. She also has been experiencing more recent onset of left facial weakness. Psychiatrically, she notes that she has been doing well lately. She denies any audiovisual hallucinations, nor can I elicit any delusional material. There is no evidence of any impairment in reality construction generally. I can elicit any mood symptoms of depression or hypomania/alison. The remainder of the psychiatric ROS is negative. The patient has no other acute physical complaints besides the neurological complaints. Past psychiatric history: The patient reports a history of schizophrenia. She follows with nurse practitioner Paola at [facility]. She has been prescribed for the last several years Risperdal 1 mg in the morning and 4 mg at bedtime as well as Celexa 20 mg daily. No recent medication changes. She reports previous psychiatric admission several years ago and one previous suicide attempt by cutting about 20 years ago. She cannot recall any other psychotropic medication trials. Family history: The patient reports that her mother may have had a similar psychiatric illness and completed suicide. There is no family history of Parkinson's disease. Chemical dependency history: The patient denies any abuse of drugs or alcohol. Social history: The patient reports that she lives with her . She has 3 grown children and grandchildren. She got to the 12th grade but did not graduate. She previously worked in a retail job. She denies any or legal history. Denies any access to guns or firearms. Review of Systems Except as stated in HPI: all other systems reviewed are Neg Past Family Social History Coded Allergies: No Known Allergies (Unverified , 2/7/18) Past Medical History Includes a history of hypertension on Norvasc Active Scripts Amlodipine (Norvasc) 5 Mg Tab, 5 MG PO DAILY for Blood Pressure Management, #30 TAB 0 Refills Prov:Melissa Todd [employer] 09/01/17 Reported Medications Risperidone (Risperidone) 4 Mg Tab, 4 MG PO HS, #30 TAB 0 Refills 09/01/17 Citalopram (Citalopram) 20 Mg Tab, 20 MG PO DAILY for Control Depression, #30 TAB 0 Refills 09/01/17 Discontinued Reported Medications Risperidone (Risperidone) 1 Mg Tab, 1 MG PO DAILY, #30 TAB 0 Refills 09/01/17 Current Medications Medications (Trade) Dose Ordered Sig/Evelin Route Start Time Stop Time Status Last Admin (Aspirin Chew) 81 mg DAILY PO 09/18/17 09:00 09/18/17 08:39 (Norvasc) 5 mg DAILY PO 09/18/17 09:00 09/18/17 08:33 (Vasotec Inj) 1.25 mg Q4H PRN IV PUSH 09/17/17 19:00 (Sinemet 25-100 Mg) 1 tab TID@0800,1200,1600 PO 09/18/17 10:00 09/18/17 11:45 Physical Exam Physical examination completed by primary team. On my examination today, the patient appears to be in no acute physical distress. She does have a prominent resting tremor in her left hand only. This is not suppressible as noted above. This tremor is also present with intention. She has some left facial weakness in the lower face at rest that disappears with volitional movement. No other focal weakness or tremor noted. She does have some bilateral cogwheeling. No other motor abnormalities noted. Laboratories and vitals signs reviewed: Vital Signs Vital Signs Date Time Temp Pulse Resp B/P (MAP) Pulse Ox O2 Delivery O2 Flow Rate FiO2 09/18/17 11:33 97.9 79 18 145/85 (105) 95 09/17/17 12:39 Room Air I/O 09/18/17 09/18/17 09/19/17 08:00 16:00 00:00 Intake Total 0 ml Balance 0 ml Lab Results Item Value Date Time White Blood Count 8.5 TH/MM3 09/17/17 1124 Hemoglobin 17.9 GM/DL H 2/23/18 1124 Platelet Count 253 TH/MM3 09/17/17 1124 Sodium Level 136 MEQ/L 09/17/17 1124 Potassium Level 3.2 MEQ/L L 09/17/17 1124 Carbon Dioxide Level 26.3 MEQ/L 09/17/17 1124 Chloride Level 99 MEQ/L 09/17/17 1124 Blood Urea Nitrogen 8 MG/DL 09/17/17 1124 Creatinine 1.23 MG/DL H 09/17/17 1124 Estimat Glomerular Filtration Rate 45 ML/MIN L 09/17/17 1124 Aspartate Amino Transf (AST/SGOT) 145 U/L H 09/17/17 1124 Alanine Aminotransferase (ALT/SGPT) 104 U/L H 09/17/17 1124 Alkaline Phosphatase 135 U/L H 09/17/17 1124 Albumin 3.1 GM/DL L 09/17/17 1124 Thyroid Stimulating Hormone 3rd Gen 0.842 uIU/ML 09/17/[address] 09/17/17 1117 Signed Impressions: Service Date/Time: Sunday, September 17, 2017 11:36 - CONCLUSION: Normal examination for a patient of this age. Iván Martinez MD Chest X-Ray 09/17/17 1117 Signed Impressions: Service Date/Time: Sunday, September 17, 2017 11:57 - CONCLUSION: Subsegmental infiltrate at the left lung base. Tee Mcclain MD Carotid Artery Ultrasound 09/17/17 0000 Signed Impressions: Service Date/Time: Sunday, September 17, 2017 14:22 - CONCLUSION: No evidence of flow-limiting carotid stenosis. Roby Knapp MD Mental Status Examination Appearance: Appropriate Consciousness: Alert Orientation: x4 Motor Activity: Other (motor exam as above) Speech: Unremarkable Language: Adequate Fund of Knowledge: Adequate Attention and Concentration: Adequate Memory: Unremarkable Mood: Appropriate Affect: Appropriate Thought Process & Associations: Intact, Logical, Linear Thought Content: Appropriate Hallucination Type: None Delusion Type: None Suicidal Ideation: No Suicidal Plan: No Suicidal Intention: No Homicidal Ideation: No Homicidal Plan: No Homicidal Intention: No Insight: Adequate Judgment: Adequate Assessment & Plan Problem List: (1) Schizophrenia ICD Codes: F20.9 - Schizophrenia, unspecified Assessment & Plan This is a 57-year-old female with psychiatric history as detailed above presently voluntarily admitted to the CDU for neurological symptoms and elevated troponin. Psychiatry is consulted out of concern that patient's tremor may be related to antipsychotic medications for the management of schizophrenia. Tremor seems less consistent with drug-induced parkinsonism as it is unilateral and had its onset after several years of stable doses of antipsychotic, although this presentation is not unheard of. I would be suspicious also of either idiopathic Parkinson's or else a posterior circulation stroke such as Benedikt or Mancilla syndrome. If these other causes are excluded, and drug-induced parkinsonism seems the most likely diagnosis, the question then becomes what to do with the patient's antipsychotic. Given that the patient has been stable for many years on her current dose of Risperdal , I think it is would be most prudent to continue with this agent as ordered and initiated anticholinergic, such as Cogentin at a starting dose of 1 mg twice daily, titrated to effect. An alternative strategy might be to switch to a different antipsychotic with less liability for EPS. I have had a lengthy discussion with the patient about this eventuality, and it is her strong preference to continue with the Risperdal. --I would recommend resuming Risperdal 1 mg in the morning and 4 mg at bedtime and Celexa 20 mg daily to prevent psychiatric decompensation and awaiting workup for neurological causes of patient's symptoms. --If these are unrevealing, I would start the Cogentin as noted above. I have taken the liberty of adding a Cogentin p.r.n. now. I would recommend against the use of pro-dopaminergic agents for the management of drug-induced parkinsonism as these may exacerbate psychotic symptoms. If idiopathic Parkinson's is suspected, I would of course defer to neurology for management of that problem. --Patient does not presently meet the Ng act criteria, nor is she presently in need of inpatient psychiatric hospitalization. She should continue to follow up with her outpatient psychiatric provider. I counseled the patient return to the psychiatric emergency room for any concerning psychiatric symptoms. Case d/w Dr. Braden. Thank you very much for this consultation. Request HC Surrog/Guard Advoc?: No Problem Qualifiers (1) Schizophrenia: Qualified Codes: F20.9 - Schizophrenia, unspecified Esequiel Gramajo MD Sep 18, 2017 12:36
[2017-09-18] MEDS ORDERED: BENZTROPINE MESYLATE 2 MG/2 ML VIAL IM PRN (13:45)
[2017-09-18] MEDS ORDERED: BENZTROPINE MESYLATE 1 MG TAB PO PRN (13:45)
--- NOTE | 2017-09-18 15:04 | RADRPT ---
EXAM DATE/TIME: 09/18/2017 14:25 [facility] COMPARISON: No previous studies available for comparison. INDICATIONS : Right facial droop. MEDICAL HISTORY : Hypertension. SURGICAL HISTORY : None. ENCOUNTER: Initial ACUITY: 1 day PAIN SCORE: 0/10 LOCATION: cranial Please note a normal MRA of the brain does not entirely exclude the possibility of a small aneurysm, nor the possibility of distal intracranial vessel disease. TECHNIQUE: 3D time of flight MRA was performed. Source images, multiplanar STS MIP, and 3D volume MIP reconstru ctions were reviewed. FINDINGS: There is excellent visualization of the major intracranial arteries out to the second-order branch ve ssels. There is no evidence for aneurysm, vessel truncation or stenosis, and no evidence for vascula r malformation. There are bilaterally patent posterior communicating arteries. CONCLUSION: Normal examination for a patient of this age. Louis aGrdiner MD on September 18, 2017 at 15:01 Board Certified Radiologist. This report was verified electronically.
--- NOTE | 2017-09-18 15:41 | RADRPT ---
EXAM DATE/TIME: 09/18/2017 14:25 [facility] COMPARISON: CT BRAIN W/O CONTRAST, September 17, 2017, 11:36. INDICATIONS : Right facial droop. MEDICAL HISTORY : Hypertension. SURGICAL HISTORY : None. ENCOUNTER: Initial ACUITY: 1 day PAIN SCORE: 0/10 LOCATION: cranial TECHNIQUE: Multiplanar, multisequence MRI of the brain was performed without contrast. FINDINGS: CEREBRUM: The ventricles are normal for age. No evidence of midline shift, mass lesion, hemorrhage or acute in farction. No extraaxial fluid collections are seen. The pituitary gland and suprasellar cistern are normal in configuration. WHITE MATTER: No significant signal abnormalities are seen in the white matter. A few high signal spots are seen in the white matter tracts bilaterally characteristic of ischemic demyelinization. POSTERIOR FOSSA: The cerebellum and brainstem are intact. The 4th ventricle is midline. The cerebellopontine angle is unremarkable. The cerebellar tonsils are normal in position. DIFFUSION IMAGING: No focal areas of restricted diffusion are seen. No evidence of acute infarction. EXTRACRANIAL: The visualized portions of the orbits and paranasal sinuses are unremarkable. CONCLUSION: Normal examination for a patient of this age. Louis Gardiner MD on September 18, 2017 at 15:38 Board Certified Radiologist. This report was verified electronically.
[2017-09-18] MEDS: risperiDONE 1 MG TAB PO SCH (21:32)
[2017-09-19] VITALS (9 sets, daily range): BP systolic 128–172; BP diastolic 72–93; PULSE 61–82; RESP 18–20; TEMP 96.3–98.7; O2SAT 92–96
[2017-09-19] MEDS: CARBIDOPA/LEVODOPA 25 MG/100 MG TAB PO SCH ×3 (08:44→17:39)
[2017-09-19] MEDS: amLODIPine BESYLATE 5 MG TAB PO SCH (08:44)
[2017-09-19] MEDS: risperiDONE 1 MG TAB PO SCH ×2 (08:44→21:16)
[2017-09-19] MEDS: ASPIRIN 81 MG CHEW TAB PO SCH (08:45)
[2017-09-19] MEDS: CITALOPRAM HYDROBROMIDE 20 MG TAB PO SCH (08:45)
--- NOTE | 2017-09-19 09:28 | HHI.PR ---
Subjective Remarks Follow up tremor, elevated troponin. Patient denies chest pain, dyspnea. Tremor is "a little better". Objective Vitals Vital Signs Date Time Temp Pulse Resp B/P (MAP) Pulse Ox O2 Delivery O2 Flow Rate FiO2 09/19/17 04:01 66 09/19/17 04:00 98.3 61 18 155/72 (99) 94 09/19/17 00:00 98.5 76 18 167/84 (111) 94 09/18/17 20:00 97.7 76 17 172/84 (113) 97 09/18/17 15:52 97.9 80 16 165/98 (120) 95 09/18/17 15:00 72 09/18/17 11:33 97.9 79 18 145/85 (105) 95 I/O 09/18/17 09/18/17 09/18/17 09/19/17 09/19/17 09/19/17 07:00 15:00 23:00 07:00 15:00 23:00 Intake Total 0 ml 480 ml Balance 0 ml 480 ml Intake Oral 0 ml 480 ml # Voids 0 2 2 4 # Bowel Movements 0 Result Diagram: 09/17/17 1124 09/17/17 1124 Imaging Last Impressions Head Magnetic Resonance Angiography 09/18/17 0000 Signed Impressions: Service Date/Time: Monday, September 18, 2017 14:25 - CONCLUSION: Normal examination for a patient of this age. Louis Gardiner MD Brain MRI 09/18/17 0000 Signed Impressions: Service Date/Time: Monday, September 18, 2017 14:25 - CONCLUSION: Normal examination for a patient of this age. Louis Gardiner MD Head CT 09/17/17 1117 Signed Impressions: Service Date/Time: Sunday, September 17, 2017 11:36 - CONCLUSION: Normal examination for a patient of this age. Iván Martinez MD Chest X-Ray 09/17/[id number] Signed Impressions: Service Date/Time: Sunday, September 17, 2017 11:57 - CONCLUSION: Subsegmental infiltrate at the left lung base. Tee Mcclain MD Carotid Artery Ultrasound 09/17/17 0000 Signed Impressions: Service Date/Time: Sunday, September 17, 2017 14:22 - CONCLUSION: No evidence of flow-limiting carotid stenosis. Roby Knapp MD Objective Remarks General: Obese female in no acute distress. Heart: Regular rate and rhythm. No murmur. Lungs: Clear to auscultation bilaterally. No wheezes, rales, or rhonchi. Breathing is nonlabored. Abdomen: Soft, nontender, nondistended. Extremities: No lower extremity edema. Left upper extremity resting tremor noted. Psych: Alert and oriented. Procedures None Urinary Catheter: No Vascular Central Line Catheter: No A/P Assessment and Plan 1. Resting tremor: Appreciate neurology, psychiatry recommendations. Per psychiatry, tremor is not likely secondary to risperidone/citalopram. These medications have been restarted. Started on Sinemet by neurology. Cogentin added by psychiatry. 2. Elevated troponin: Appreciate cardiology recommendations. Patient is denying chest pain. Continue aspirin. Nuclear stress test ordered. 3. TIA versus CVA: Patient had right facial droop noted prior to presentation to the ER. Appreciate neurology recommendations. Carotid artery ultrasound is negative. Head CT is negative. MRI/MRA negative. 4. Hypertension: Continue amlodipine. BP elevated. 5. DVT prophylaxis: SCDs. Discharge Planning Pending further cardiac workup Jarrett Braden MD Sep 19, 2017 09:28
[2017-09-19] MEDS ORDERED: amLODIPine BESYLATE 5 MG TAB PO ONE (09:30)
--- NOTE | 2017-09-19 10:53 | PD.CARD.PN ---
Subjective Subjective Remarks rested comfortably overnight. LUE tremor improving, no chest pain or sob (Randi Todd) Objective Medications Current Medications Medications (Trade) Dose Ordered Sig/Evelin Route Start Time Stop Time Status Last Admin (Aspirin Chew) 81 mg DAILY PO 09/18/17 09:00 09/19/17 08:45 (Vasotec Inj) 1.25 mg Q4H PRN IV PUSH 09/17/17 19:00 (Sinemet 25-100 Mg) 1 tab TID@0800,1200,1600 PO 09/18/17 10:00 09/19/17 08:44 (CeleXA) 20 mg DAILY PO 09/19/17 09:00 09/19/17 08:45 (risperDAL) 1 mg DAILY PO 09/19/17 09:00 09/19/17 08:44 (risperDAL) 4 mg HS PO 09/18/17 21:00 09/18/17 21:32 (Cogentin Inj) 1 mg Q12HR PRN IM 09/18/17 13:45 (Cogentin) 1 mg Q12HR PRN PO 09/18/17 13:45 (Norvasc) 10 mg DAILY PO 09/20/17 09:00 Vital Signs / I&O Vital Signs Date Time Temp Pulse Resp B/P (MAP) Pulse Ox O2 Delivery O2 Flow Rate FiO2 09/19/17 09:40 96.8 73 20 142/93 (109) 96 09/19/17 04:01 66 09/19/17 04:00 98.3 61 18 155/72 (99) 94 09/19/17 00:00 98.5 76 18 167/84 (111) 94 09/18/17 20:00 97.7 76 17 172/84 (113) 97 09/18/17 15:52 97.9 80 16 165/98 (120) 95 09/18/17 15:00 72 09/18/17 11:33 97.9 79 18 145/85 (105) 95 I/O 09/18/17 09/18/17 09/18/17 09/19/17 09/19/17 09/19/17 07:00 15:00 23:00 07:00 15:00 23:00 Intake Total 0 ml 480 ml Balance 0 ml 480 ml Intake Oral 0 ml 480 ml # Voids 0 2 2 4 # Bowel Movements 0 Physical Exam GENERAL: SKIN: Warm and dry. HEAD: Atraumatic. Normocephalic. EYES: Pupils equal and round. ENT: No nasal bleeding or discharge. NECK: Trachea midline. No JVD. CARDIOVASCULAR: Regular rate and rhythm. no murmurs RESPIRATORY: No accessory muscle use. Clear to auscultation. Breath sounds equal bilaterally. GASTROINTESTINAL: Abdomen soft, non-tender, nondistended. MUSCULOSKELETAL: Extremities without clubbing, cyanosis, or edema. No obvious deformities. NEUROLOGICAL: Awake and alert. No obvious cranial nerve deficits. Normal speech. L upper arm resting tremor PSYCHIATRIC: Appropriate mood and affect; insight and judgment normal. Imaging Last 48 hours Impressions Head Magnetic Resonance Angiography 09/18/17 0000 Signed Impressions: Service Date/Time: Monday, September 18, 2017 14:25 - CONCLUSION: Normal examination for a patient of this age. Louis Gardiner MD Brain MRI 09/18/17 0000 Signed Impressions: Service Date/Time: Monday, September 18, 2017 14:25 - CONCLUSION: Normal examination for a patient of this age. Louis Gardiner MD Head CT 09/17/17 111 Signed Impressions: Service Date/Time: Sunday, September 17, 2017 11:36 - CONCLUSION: Normal examination for a patient of this age. Iván Martinez MD Chest X-Ray 09/17/[id number] Signed Impressions: Service Date/Time: Sunday, September 17, 2017 11:57 - CONCLUSION: Subsegmental infiltrate at the left lung base. Tee Mcclain MD (Randi Todd) Assessment and Plan Problem List: (1) HTN (hypertension) ICD Codes: I10 - Essential (primary) hypertension (2) Elevated troponin ICD Codes: R74.8 - Abnormal levels of other serum enzymes Assessment and Plan 57 yo WF with HTN, schizophrenia, bipolar disorder and no prior cardiac history who presents with L upper arm tremors x 3 weeks. She is followed by mental health practitioner in outpatient setting on a regular basis and found to have a R facial droop yesterday; she was then directed to the ED. troponin elevation- intermediate, now decreasing. no chest pain EKG does not show concerning ST segment or T wave changes, normal QTc echo= normal EF will evaluate for ischemia with lexiscan today, keep npo parkinsonian LUE tremor- improving (Randi Todd) Assessment and Plan lexiscan unremarkable med mgt consrvative treatment. no [facility] ok for DC from cardio standpoint call with questions will sign off (Carlos Sen MD) Randi Todd Sep 19, 2017 10:53 Carlos Sen MD Sep 20, 2017 07:16
[2017-09-19] MEDS ORDERED: REGADENOSON INJ 0.4 MG/5 ML SYR ONE (11:54)
--- NOTE | 2017-09-19 12:42 | RADRPT ---
EXAM DATE/TIME: 09/18/2017 15:08 [facility] COMPARISON: No previous studies available for comparison. INDICATIONS : Substernal chest pain. Angina. DOSE: 30 mCi Tc99m Myoview at stress. 30 mCi Tc99m Myoview at rest. 0.4 mg Lexiscan STRESS SYMPTOMS: Chest pain and lightheaded. EJECTION FRACTION: 64% MEDICAL HISTORY : Hypertension. SURGICAL HISTORY : None. ENCOUNTER: Initial ACUITY: 1 day PAIN SCALE: 4/10 LOCATION: Substernal chest TECHNIQUE: The patient underwent pharmacologic stress with infusion of prescribed dose. Continuous ECG tracing was monitored during stress. Gated SPECT imaging was performed after stress and conventional SPECT i maging was performed at rest. The examination was performed on a SPECT/CT scanner, both attenuation and non-corrected datasets were reviewed. FINDINGS: DISTRIBUTION: The maximum perfused segment at stress is in the lateral wall. PERFUSION STUDY: The pattern of perfusion at stress is within normal limits. GATED STUDY: There is intact wall motion and thickening without hypokinetic or dyskinetic segments. CONCLUSION: Unremarkable myocardial perfusion examination. RISK CATEGORY: Low Louis Gardiner MD on September 19, 2017 at 12:40 Board Certified Radiologist. This report was verified electronically.
[2017-09-20] VITALS: BP 148/76; PULSE 78; RESP 18; TEMP 98; O2SAT 96
[2017-09-20 00:09] VITALS: PULSE 65
[2017-09-20 03:46] VITALS: BP 122/76; PULSE 67; RESP 18; TEMP 98.1; O2SAT 95
[2017-09-20 08:30] VITALS: BP 144/89; PULSE 86; RESP 18; TEMP 97.5; O2SAT 94
[2017-09-20] MEDS: CITALOPRAM HYDROBROMIDE 20 MG TAB PO SCH (08:53)
[2017-09-20] MEDS: CARBIDOPA/LEVODOPA 25 MG/100 MG TAB PO SCH (08:53)
[2017-09-20] MEDS: ASPIRIN 81 MG CHEW TAB PO SCH (08:53)
[2017-09-20] MEDS: risperiDONE 1 MG TAB PO SCH (08:54)
[2017-09-20] MEDS ORDERED: Carbidopa-Levodopa 25-100 Mg PO (09:43)
[2017-09-20] MEDS ORDERED: RISP1 PO (09:43)
[2017-09-20] MEDS ORDERED: ASPI81 PO (09:43)
[2017-09-20] MEDS ORDERED: AMLO10 PO (09:43)
--- NOTE | 2017-09-20 09:44 | HHI.DCPOC ---
Discharge Care Plan Diagnosis: (1) Schizophrenia (2) Elevated troponin (3) HTN (hypertension) (4) Resting tremor Goals to Promote Your Health * To prevent worsening of your condition and complications * To maintain your health at the optimal level Directions to Meet Your Goals Take your medications as prescribed Follow your dietary instruction Follow activity as directed Keep your appointments as scheduled Take your immunizations and boosters as scheduled If your symptoms worsen call your PCP, if no PCP go to Urgent Care Center or Emergency Room Smoking is Dangerous to Your Health. Avoid second hand smoke Call the 24-hour hour crisis hotline for domestic abuse at Jarrett Braden MD Sep 20, 2017 09:44
--- NOTE | 2017-09-20 09:47 | HHI.DS ---
Discharge Summary Admission Date Sep 17, 2017 at 14:15 Discharge Date: Sep 20, 2017 Admitting Diagnosis tremor, right facial drop, unknown etiology (1) HTN (hypertension) ICD Code: I10 - Essential (primary) hypertension (2) Elevated troponin ICD Code: R74.8 - Abnormal levels of other serum enzymes (3) Schizophrenia ICD Code: F20.9 - Schizophrenia, unspecified (4) Resting tremor ICD Code: R25.9 - Unspecified abnormal involuntary movements Procedures None Brief History - From Admission Patient is a 57-year-old female with past medical history of schizophrenia, hypertension, bipolar disorder presented to the emergency room for left-sided tremors 3 weeks. She follows at the [facility]. There, they noted that she had a right-sided drooping of her face. Patient was instructed to come to the emergency room for further evaluation. Upon questioning, she tells me that my left arm is shaking out of control. She denies any changes to her medications. She is from [place] and recently moved here. She is being followed as [facility] by a an HOME CARE COORDINATOR who refills her medications. She states that she has been taking her medications regularly and no longer has auditory or visual hallucinations. She notes that whenever she lifts her arm the movements decreased however at rest the movements are a lot worse. Nothing is noted on the right arm. She did not note the facial droop. She denies any change in her vision or blurriness. Denies any nausea vomiting, chest pain or shortness of breath, rash increased urinary frequency or burning with urination. CBC/BMP: 09/17/17 1124 09/17/17 1124 Significant Findings Laboratory Tests Test 09/17/17 11:24 09/17/17 18:40 09/18/17 00:15 09/18/17 07:55 Hemoglobin 17.9 GM/DL (11.6-15.3) Hematocrit 51.8 % (35.0-46.0) Mean Corpuscular Volume 106.3 FL (80.0-100.0) Mean Corpuscular Hemoglobin 36.7 PG (27.0-34.0) Neutrophils (%) (Auto) 74.7 % (16.0-70.0) Prothrombin Time 12.2 SEC (9.8-11.6) Creatinine 1.23 MG/DL (0.50-1.00) Random Glucose 131 MG/DL (74-106) Albumin 3.1 GM/DL (3.4-5.0) Magnesium Level 1.3 MG/DL (1.5-2.5) Alkaline Phosphatase 135 U/L (45-117) Aspartate Amino Transf (AST/SGOT) 145 U/L (15-37) Alanine Aminotransferase (ALT/SGPT) 104 U/L (10-53) Total Bilirubin 1.3 MG/DL (0.2-1.0) Potassium Level 3.2 MEQ/L (3.5-5.1) Estimat Glomerular Filtration Rate 45 ML/MIN (>89) Troponin I LESS THAN 0.02 NG/ML 0.15 NG/ML (0.02-0.05) 0.13 NG/ML (0.02-0.05) 0.06 NG/ML (0.02-0.05) Imaging Last Impressions Myocardial Perfusion Scan Nuc Med 09/18/17 0000 Signed Impressions: Service Date/Time: Monday, September 18, 2017 15:08 - CONCLUSION: Unremarkable myocardial perfusion examination. RISK CATEGORY: Low Louis Gardiner MD Head Magnetic Resonance Angiography 09/18/17 0000 Signed Impressions: Service Date/Time: Monday, September 18, 2017 14:25 - CONCLUSION: Normal examination for a patient of this age. Louis Gardiner MD Brain MRI 09/18/17 0000 Signed Impressions: Service Date/Time: Monday, September 18, 2017 14:25 - CONCLUSION: Normal examination for a patient of this age. Louis Gardiner MD Head CT 09/17/17 1117 Signed Impressions: Service Date/Time: Sunday, September 17, 2017 11:36 - CONCLUSION: Normal examination for a patient of this age. Iván Martinez MD Chest X-Ray 09/17/17 1117 Signed Impressions: Service Date/Time: Sunday, September 17, 2017 11:57 - CONCLUSION: Subsegmental infiltrate at the left lung base. Tee Mcclain MD Carotid Artery Ultrasound 09/17/17 0000 Signed Impressions: Service Date/Time: Sunday, September 17, 2017 14:22 - CONCLUSION: No evidence of flow-limiting carotid stenosis. Roby Knapp MD PE at Discharge General: Obese female in no acute distress. Heart: Regular rate and rhythm. No murmur. Lungs: Clear to auscultation bilaterally. No wheezes, rales, or rhonchi. Breathing is nonlabored. Abdomen: Soft, nontender, nondistended. Extremities: No lower extremity edema. Left upper extremity resting tremor noted. Psych: Alert and oriented. Pt update on day of discharge Patient reports that she is still having tremor of her left upper extremity. No chest pain or dyspnea. No other complaints at this time. She would like to go home today. Hospital Course The patient was admitted for further management of left upper extremity tremor. Neurology was consulted and started Sinemet. Psychiatry was consulted for assistance with management of patient's chronic psychiatric medications. Risperdal and Celexa were restarted. She noticed slight improvement in the tremor. Cardiology was consulted for elevated troponin. Nuclear stress test was negative. Patient was cleared for discharge by cardiology. She was also cleared for discharge by neurology and felt to be stable for outpatient follow- up. Pt Condition on Discharge: Stable Discharge Disposition: Discharge Home Discharge Time: <= 30 minutes Discharge Instructions DIET: Follow Instructions for: Heart Healthy Diet, Diabetic Diet Activities you can perform: Regular-No Restrictions Follow up Referrals: Cardiology - 2 Weeks with Carlos Sen MD Neurology - 1 Week with Sammy Ramos MD PCP Follow-up - 2 Weeks Psychiatry Adult - 1 Week New Medications: Amlodipine (Norvasc) 10 Mg Tab 10 MG PO DAILY for Blood Pressure Management, #30 TAB 0 Refills Aspirin (Tgt Aspirin) 81 Mg Chw 81 MG PO DAILY for Blood Clot Prevention, #30 EA 0 Refills Risperidone (Risperdal) 1 Mg Tab 1 MG PO DAILY for Schizophrenia, #30 TAB 0 Refills [Carbidopa-Levodopa 25-100 Mg] () 1 TAB TAB 1 TAB PO TID@0800,1200,1600 for Tremor, #90 TAB 0 Refills Continued Medications: Citalopram (Citalopram) 20 Mg Tab 20 MG PO DAILY for Control Depression, #30 TAB 0 Refills Risperidone (Risperidone) 4 Mg Tab 4 MG PO HS, #30 TAB 0 Refills Discontinued Medications: Amlodipine (Norvasc) 5 Mg Tab 5 MG PO DAILY for Blood Pressure Management, #30 TAB 0 Refills Jarrett Braden MD Sep 20, 2017 09:47
[2017-09-20 12:04] VITALS: BP 136/85; PULSE 83; RESP 19; TEMP 98; O2SAT 94
== END 2017-09-20 12:58 | disposition home or self-care (01) ==
LOC: NEPE 10:55 → NEDA 14:15 → NEPFCDU 14:40
PROVIDERS: ADMIT Family Medicine; ATTEND Family Medicine
DX: I10 Essential (primary) hypertension (principal); R74.8 Abnormal levels of other serum enzymes; F20.9 Schizophrenia, unspecified; E87.6 Hypokalemia; E83.42 Hypomagnesemia; G20 Parkinson's disease; G51.0 Bell's palsy; R91.8 Other nonspecific abnormal finding of lung field; R94.31 Abnormal electrocardiogram [ECG] [EKG]; R42 Dizziness and giddiness; F17.210 Nicotine dependence, cigarettes, uncomplicated; F12.90 Cannabis use, unspecified, uncomplicated; F31.9 Bipolar disorder, unspecified; Z79.899 Other long term (current) drug therapy; Z91.5 Personal history of self-harm
CPT/HCPCS: 70450; 70544; 70551; 71045; 78452; 80053; 82550; 82552; 83735; 84443; 84484; 85025; 85610; 85730; 93005; 93017; 93306; 93880; 96361; 96374; 97162; 99285; A9502; G0378; G8987; G8988; J0515; J2785; J7030

== ENCOUNTER 2018-03-15 16:54 | Inpatient (IN) ==
[2018-03-15] MEDS ORDERED: Sod Chloride 0.9% Inj 1,000 ML IV.SIG ONE (21:40)
[2018-03-15] MEDS ORDERED: Acetaminophen 325 MG Tablet PO ONE (21:40)
--- NOTE | 2018-03-15 21:46 | ED ---
HPI General Chief complaint: Weakness Stated complaint: Flu Like Symptoms Time Seen by Provider: 03/15/18 21:40 Source: patient and EMS Mode of arrival: EMS Limitations: no limitations History of Present Illness HPI Narrative: 57-year-old white female with a history of depression and schizophrenia presents emergency department by EMS with complaints of 2 days of generalized weakness. She states that she has had a fevers at home, slight cough, nausea, and general malaise. She does feel dizzy and lightheaded. She denies any vomiting. No chest pain or shortness of breath. No abdominal pain. No dysuria frequency. No abnormal vaginal discharge. Symptoms are moderate. No exacerbating or alleviating factors. Related Data Allergies Allergy/AdvReac Type Severity Reaction Status Date / Time No Known Allergies Allergy Unverified 09/01/17 09:48 Review of Systems ROS: all other systems reviewed are negative [facility] Medical History Medical History Schizophrenia (Acute) Surgical History Surgical History Hx of tonsillectomy (Acute) Social History Social History Substance History: Active Abuse Smoking Status: Current every day smoker Tobacco Type: Cigarettes How Often Do You Have a Drink Containing Alcohol: 4 or more times a week Recent Travel in [facility] within the Last 8 Weeks: No Recent Out of Country Travel within the Last 8 Weeks: No Exam Narrative Exam Narrative: GENERAL: Well-developed, well-nourished in no apparent distress. Nontoxic appearing. HEAD: Normocephalic, atraumatic. EYES: Pupils equal round and reactive. Extraocular motions intact. No scleral icterus. No injection or drainage. ENT: Nose clear. Throat without erythema, tonsillar hypertrophy or exudate. Uvula midline. Airway patent. NECK: Trachea midline. Supple, nontender, moves head freely. No central bony tenderness or spasm. CARDIOVASCULAR: Regular rate and rhythm without murmurs, gallops, or rubs. RESPIRATORY: Clear to auscultation. Breath sounds equal bilaterally. No wheezes , rales, or rhonchi. GASTROINTESTINAL: Abdomen soft, non-tender, nondistended. No hepato-splenomegaly , or palpable masses. No guarding. EXTREMITIES: No clubbing, cyanosis, or edema. No joint tenderness. BACK: Nontender without deformity. No flank tenderness. NEUROLOGICAL: Awake, alert and oriented x 3 .Cranial nerves grossly intact. Motor and sensory grossly within normal limits. Normal speech. Course Initial Documented Vital Signs Temperature 97.9 F 03/15/18 17:06 Pulse Rate 109 H 03/15/18 17:06 Respiratory Rate 20 03/15/18 17:06 Blood Pressure 119/57 L 03/15/18 17:06 Pulse Oximetry 96 03/15/18 17:06 Last Documented Vital Signs Temperature 97.9 F 03/15/18 17:06 Pulse Rate 85 03/15/18 23:01 Respiratory Rate 16 03/15/18 23:01 Blood Pressure 142/68 H 03/15/18 23:01 Pulse Oximetry 97 03/15/18 23:01 Medical Decision Making BENNY Attestation BENNY supervised visit: Yes Attestation: I, [-], have reviewed the advance practice practitioner's documentation and am in agreement, met with the patient face to face, made the diagnosis, and the medical decision making was done by me. *My assessment and Findings: [-] MDM Narrative Medical decision making narrative: IV access is obtained. Patient was given liter bolus of saline, 975 mill grams of Tylenol, CBC, chemistry, lactic, UA and chest x-ray. X-ray is negative for infiltrate. Patient's lactic is positive at 2.9. She has acute renal injury. She is dehydrated. 2 sets of blood cultures. She has been given a total of 3 L of normal saline. She has a Quintero in place. She is given Rocephin 1 g IV. Urine is positive for UTI. The patient will be admitted to the [facility] service for IV hydration and antibiotics. [facility] who is agreed to admit the patient. Medical Screen Exam Complete: Yes Emergency Medical Condition: Yes Lab Data Result diagrams: 03/15/18 22:45 03/15/18 22:45 Lab Results 03/15/18 03/15/18 03/16/18 Range/Units 22:45 22:45 00:06 WBC 9.0 (4.0-11.0) th/mm3 RBC 3.00 L (4.00-5.30) mil/mm3 Hgb 11.7 (11.6-15.3) gm/dL Hct 33.7 L (35.0-46.0) % MCV 112.4 H (80.0-100.0) fL MCH 39.1 H (27.0-34.0) pg MCHC 34.8 (32.0-36.0) % RDW 17.5 H (11.6-17.2) % Plt Count 188 (150-450) th/mm3 MPV 9.9 (7.0-11.0) fL Neut % (Auto) 73.4 H (16.0-70.0) % Lymph % (Auto) 13.3 (9.0-44.0) % [place] % (Auto) 12.5 H (0.0-8.0) % Eos % (Auto) 0.5 (0.0-4.0) % Baso % (Auto) 0.3 (0.0-2.0) % Neut # (Auto) 6.6 (1.8-7.7) th/mm3 Lymph # (Auto) 1.2 (1.0-4.8) th/mm3 [place] # (Auto) 1.1 H (0.0-0.9) th/mm3 Eos # (Auto) 0.0 (0.0-0.4) th/mm3 Baso # (Auto) 0.0 (0.0-0.2) th/mm3 WBC Differential . Differential Comment Auto diff final Sodium 132 L (136-145) meq/L Potassium 3.4 L (3.5-5.1) meq/L Chloride 95 L (98-107) meq/L Carbon Dioxide 23.3 (21.0-32.0) meq/L Anion Gap 14 (5-15) meq/L BUN 18 (7-18) mg/dL Creatinine 1.63 H (0.50-1.00) mg/dL Estimated GFR 33 L (>89) mL/min Random Glucose 111 H (74-106) mg/dL Lactic Acid 2.9 H (0.4-2.0) mmol/L Calcium 9.1 (8.5-10.1) mg/dL Total Bilirubin 1.0 (0.2-1.0) mg/dL AST 28 (15-37) U/L ALT 24 (10-53) U/L Alkaline Phosphatase 83 (45-117) U/L Lactate Dehydrogenase 195 (84-246) U/L Total Protein 7.1 (6.4-8.2) g/dL Albumin 2.4 L (3.4-5.0) g/dL Imaging Data Radiologist's impression: Chest X-Ray 03/15/18 21:40 CONCLUSION: Chronic left lower lung subsegmental infiltrate. Discharge Plan Discharge Disposition Patient Disposition: 30 Still Patient Discharge Condition Condition: Stable Physicians Team ED Provider: Selin Gomez ED Midlevel Provider: Iván Davies Primary Care Provider: Primary Care Physici,No Discharge Interventions Interventions: Vital Signs Last Done: 03/15/18 23:01 Status ED Status: With Doctor
--- NOTE | 2018-03-15 22:27 | XR ---
EXAM DATE: 03/15/2018 9:54 PM EDT AGE/SEX: 57 years / Female INDICATIONS: Fever. Patient states nausea and vomiting. CLINICAL DATA: This is the patient's initial encounter. Patient reports that signs and symptoms have been present for 2 days and indicates a pain score of 0/10. MEDICAL/SURGICAL HISTORY: Hypertension. Tonsillectomy. COMPARISON: [facility] [place] S[place], 09/17/2017. . FINDINGS: Frontal view of the chest demonstrates an opacity in the left costophrenic angle similar appearance t o prior chest x-ray in August 2017 suggesting this may represent a chronic infiltrate. The remainde r of the lungs are clear. The heart is normal size. Both hemidiaphragms well delineated. CONCLUSION: Chronic left lower lung subsegmental infiltrate. Electronically signed by: Tee Mcclain MD 03/15/2018 10:26 PM EDT
[2018-03-15 23:07] LABS: Baso % (Auto) 0.3 % (0.0-2.0); Eos % (Auto) 0.5 % (0.0-4.0); Hematocrit 33.7 % (35.0-46.0); Hemoglobin 11.7 gm/dL (11.6-15.3); Lymph # (Auto) 1.2 th/mm3 (1.0-4.8); Lymph % (Auto) 13.3 % (9.0-44.0); Mean Corpuscular HGB Conc 34.8 % (32.0-36.0); Mean Corpuscular Hemoglobin 39.1 pg (27.0-34.0); Mean Corpuscular Volume 112.4 fL (80.0-100.0); Mean Platelet Volume 9.9 fL (7.0-11.0); Mono # (Auto) 1.1 th/mm3 (0.0-0.9); Mono % (Auto) 12.5 % (0.0-8.0); Neut # (Auto) 6.6 th/mm3 (1.8-7.7); Neut % (Auto) 73.4 % (16.0-70.0); Platelet Count 188 th/mm3 (150-450); Red Cell Distribution Width 17.5 % (11.6-17.2)
[2018-03-15 23:09] LABS: Albumin 2.4 g/dL (3.4-5.0); Anion Gap 14 meq/L (5-15); Aspartate Aminotransferase 28 U/L (15-37); Blood Urea Nitrogen 18 mg/dL (7-18); Calcium 9.1 mg/dL (8.5-10.1); Carbon Dioxide 23.3 meq/L (21.0-32.0); Chloride 95 meq/L (98-107); Glomerular Filtration Rate 33 mL/min (>89); Glucose,Random 111 mg/dL (74-106); Potassium 3.4 meq/L (3.5-5.1); Sodium 132 meq/L (136-145)
[2018-03-15 23:12] LABS: Alanine Aminotransferase 24 U/L (10-53); Alkaline Phosphatase 83 U/L (45-117); Lactate Dehydrogenase 195 U/L (84-246); Total Protein 7.1 g/dL (6.4-8.2)
[2018-03-15] MEDS ORDERED: Sod Chloride 0.9% Inj 2,000 ML IV.SIG ONE (23:48)
[2018-03-16 02:28] LABS: Amorphous Sediment,Urine Rare /hpf; Bacteria,Urine Many /hpf; Bilirubin,Urine Negative (Negative); Clarity,Urine Hazy (Clear); Color,Urine Yellow (Yellw/Straw); Glucose,Urine (UA) Negative (Negative); Hyaline Casts,Urine 1 /lpf (0-3); Leukocyte Esterase,Urine Moderate (Negative); Mucus,Urine Few /lpf (Occasional); Nitrite,Urine Negative (Negative); Specific Gravity,Urine 1.008 (1.002-1.035); Squamous Epithelial Cell,Urine <1 /hpf (0-5)
[2018-03-16] MEDS ORDERED: Bisacodyl 10 MG Supp RECTAL PRN (03:00)
[2018-03-16] MEDS ORDERED: Acetaminophen 325 MG Tablet PO PRN (03:00)
--- NOTE | 2018-03-16 03:10 | P.HP ---
History of Present Illness Service: [facility] Primary Care Physician: No Primary Care Physician History of Present Illness: 57-year-old female with a past medical history significant for schizophrenia and depression presents the emergency department for the evaluation of generalized weakness. Patient reports that she has had fevers at home, slight cough, nausea and generalized malaise. She endorses dizziness and lightheadedness. No emesis or diarrhea. No chest pain or shortness of breath. No abdominal pain. No dysuria or frequency. No lateralizing signs/symptoms. Inpatient Certification: I certify that the inpatient services were ordered in accordance with Medicare regulations governing the order. This includes certification that hospital inpatient services are reasonable and necessary and in the case of services not specified as inpatient-only under 42 CFR 419.22(n), that they are appropriately provided as inpatient services in accordance to with the 2-midnight benchmark under 43 CFR 412.3(e) Estimated Total Length of Stay (Days): 2 Plans for Post Hospital Care: Not yet determined Review of Systems All other systems reviewed negative except as stated in HPI PMFSH - History History Provided By: Patient - Medical History Medical History: Medical History (Last Updated 03/15/18 @ 21:46 by Sandra Rich) Schizophrenia - Surgical History Surgical History: Surgical History (Last Updated 03/15/18 @ 21:46 by Sandra Rich) Hx of tonsillectomy - Family History Family History: Family History (Last Updated 03/16/18 @ 03:05 by Nuvia Moss MD) Other Family history normal - Tobacco History Tobacco Use In Past 30 Days: Yes Smoking Status: Current every day smoker Tobacco Type: Cigarettes - Alcohol History How Often Do You Have a Drink Containing Alcohol: 4 or more times a week - Substance Use History Substance History: Active Abuse - Substance Use Type Marijuana Status: Active Route Used: Inhalation Reason for Use: Get High - Travel History Recent Travel in the [place] Within the Last 8 Weeks: No Recent Travel Out of the Country Within the Last 8 Weeks: No - Immunization History Tetanus Immunization: Unsure Hx Influenza Vaccine This Season: No Medications and Allergies Active Medications: Active Medications Sodium Chloride (Ns Flush) 2 ml IV.FLUSH PRN PRN PRN Reason: FLUSH AFTER USING IV ACCESS Allergies Allergy/AdvReac Type Severity Reaction Status Date / Time No Known Allergies Allergy Verified 03/16/18 02:38 Home Medications Medication Instructions Recorded Confirmed Type citalopram 40 mg PO DAILY 03/16/18 03/16/18 History risperidone 1 mg PO QAM 03/16/18 03/16/18 History risperidone [Risperdal] 4 mg PO HS 03/16/18 03/16/18 History trihexyphenidyl 5 mg PO HS 03/16/18 03/16/18 History Exam Vital signs: Vital Signs 03/15/18 17:06 03/15/18 23:01 Temperature 97.9 F Pulse Rate 109 H 85 Respiratory Rate 20 16 Blood Pressure 119/57 L 142/68 H Pulse Oximetry 96 97 Intake & Output 03/15/18 03/15/18 03/16/18 06:59 18:59 06:59 Weight 92.079 kg Narrative: Gen.: No acute distress Head: Normocephalic. Atraumatic. EENT: Pupils equal round and reactive to light. Nose without drainage. Airway intact. Throat without injection. Cardiovascular: Regular rate and rhythm. No murmurs, rubs or gallops. Respiratory: Lungs clear to auscultation bilaterally. No wheezes or rhonchi. Abdomen: Soft, nontender, nondistended. No peritoneal signs. Musculoskeletal: No gross deformities. No edema. Skin: No obvious rashes or erythema. Neuro: Sensory and motor grossly intact. Cranial nerves II through XII grossly intact. Results - Labs CBC & Chem 7: 03/15/18 22:45 03/15/18 22:45 Labs: Laboratory Results - last 24 hr 03/15/18 03/15/18 03/16/18 22:45 22:45 00:06 WBC 9.0 RBC 3.00 L Hgb 11.7 Hct 33.7 L MCV 112.4 H MCH 39.1 H MCHC 34.8 RDW 17.5 H Plt Count 188 MPV 9.9 Neut % (Auto) 73.4 H Lymph % (Auto) 13.3 [place] % (Auto) 12.5 H Eos % (Auto) 0.5 Baso % (Auto) 0.3 Neut # (Auto) 6.6 Lymph # (Auto) 1.2 [place] # (Auto) 1.1 H Eos # (Auto) 0.0 Baso # (Auto) 0.0 WBC Differential . Differential Comment Auto diff final Sodium 132 L Potassium 3.4 L Chloride 95 L Carbon Dioxide 23.3 Anion Gap 14 BUN 18 Creatinine 1.63 H Estimated GFR 33 L Random Glucose 111 H Lactic Acid 2.9 H Calcium 9.1 Total Bilirubin 1.0 AST 28 ALT 24 Alkaline Phosphatase 83 Lactate Dehydrogenase 195 Total Protein 7.1 Albumin 2.4 L Urine Color Urine Clarity Urine pH Ur Specific [place] Urine Protein Urine Glucose (UA) Urine Ketones Urine Occult Blood Urine Nitrate Urine Bilirubin Urine Urobilinogen Ur Leukocyte Esterase Urine RBC Urine WBC Ur Squamous Epith Cells Amorphous Sediment Urine Bacteria Hyaline Casts Urine Mucus Micro UA Comment Urine Culture Comments 03/16/18 01:45 WBC RBC Hgb Hct MCV MCH MCHC RDW Plt Count MPV Neut % (Auto) Lymph % (Auto) [place] % (Auto) Eos % (Auto) Baso % (Auto) Neut # (Auto) Lymph # (Auto) [place] # (Auto) Eos # (Auto) Baso # (Auto) WBC Differential Differential Comment Sodium Potassium Chloride Carbon Dioxide Anion Gap BUN Creatinine Estimated GFR Random Glucose Lactic Acid Calcium Total Bilirubin AST ALT Alkaline Phosphatase Lactate Dehydrogenase Total Protein Albumin Urine Color Yellow Urine Clarity Hazy H Urine pH 5.0 Ur Specific [place] 1.008 Urine Protein 30 H Urine Glucose (UA) Negative Urine Ketones Negative Urine Occult Blood Moderate H Urine Nitrate Negative Urine Bilirubin Negative Urine Urobilinogen Less than 2 Ur Leukocyte Esterase Moderate H Urine RBC 4 H Urine WBC 24 H Ur Squamous Epith Cells <1 Amorphous Sediment Rare H Urine Bacteria Many H Hyaline Casts 1 Urine Mucus Few H Micro UA Comment Cath-culture ind Urine Culture Comments Cath-cult indicated - Imaging Impressions Chest X-Ray 03/15/18 21:40 CONCLUSION: Chronic left lower lung subsegmental infiltrate. Caprini VTE Risk Assessment Caprini VTE Risk Assessment: No/Low Risk (score <= 1) Caprini Risk Assessment Model: Point Value = 1 Point Value = 2 Point Value = 3 Point Value = 5 Age 41-60 Minor surgery BMI > 25 kg/m2 Swollen legs Varicose veins or History of unexplained or recurrent spontaneous Oral contraceptives or hormone replacement Sepsis (< 1 month) Serious lung disease, including pneumonia (< 1 month) Abnormal pulmonary function Acute myocardial infarction Congestive heart failure (< 1 month) History of inflammatory bowel disease Medical patient at bed rest Age 61-74 Arthroscopic surgery Major open surgery (> 45 min) Laparoscopic surgery (> 45 min) Malignancy Confined to bed (> 72 hours) Immobilizing plaster cast Central venous access Age >= 75 History of VTE Family history of VTE Factor V Leiden Prothrombin [id number] Lupus anticoagulant Anticardiolipin antibodies Elevated serum homocysteine Heparin-induced thrombocytopenia Other congenital or acquired thrombophilia Stroke (< 1 month) Elective arthroplasty Hip, pelvis, or leg fracture Acute spinal cord injury (< 1 month) Prophylaxis Regimen: Total Risk Factor Score Risk Level Prophylaxis Regimen 0-1 Low Early ambulation 2 Moderate Order ONE of the following: *Sequential Compression Device (SCD) *Heparin 5000 units SQ BID 3-4 Higher Order ONE of the following medications: *Heparin 5000 units SQ TID *Enoxaparin/Lovenox 40 mg SQ daily (WT < 150 kg, CrCl > 30 mL/min) *Enoxaparin/Lovenox 30 mg SQ daily (WT < 150 kg, CrCl > 10-29 mL/min) *Enoxaparin/Lovenox 30 mg SQ BID (WT < 150 kg, CrCl > 30 mL/min) AND/OR *Sequential Compression Device (SCD) 5 or more Highest Order ONE of the following medications: *Heparin 5000 units SQ TID (Preferred with Epidurals) *Enoxaparin/Lovenox 40 mg SQ daily (WT < 150 kg, CrCl > 30 mL/min) *Enoxaparin/Lovenox 30 mg SQ daily (WT < 150 kg, CrCl > 10-29 mL/min) *Enoxaparin/Lovenox 30 mg SQ BID (WT < 150 kg, CrCl > 30 mL/min) AND *Sequential Compression Device (SCD) Assessment and Plan - Plan Assessment/plan: 1. UTI UA consistent with urinary tract infection Urine culture pending Elevated lactic acid, concern for early sepsis Blood cultures pending Rocephin 2. Acute kidney injury Creatinine 1.63, baseline approximately 1.0 IV fluid hydration Monitor renal function 3. Schizophrenia/depression Continue home psychiatric medications FEN Regular diet Electrolytes: Monitor and replete as needed, status post p.o. repletion of potassium NS at 100 cc/hour
[2018-03-16] MEDS: Sod Chloride 0.9% Inj 1,000 ML IV.CONT SCH ×3 (03:48→23:00)
[2018-03-16] MEDS: Senna/Docusate Sodium 8.6/50 MG Tablet PO SCH ×2 (09:54→20:37)
--- NOTE | 2018-03-16 12:03 | P.PNIM ---
Subjective Interval history: 57-year-old female with a past medical history significant for schizophrenia and depression presents the emergency department for the evaluation of generalized weakness. Patient reports that she has had fevers at home, slight cough, nausea and generalized malaise. She endorses dizziness and lightheadedness. No emesis or diarrhea. No chest pain or shortness of breath. No abdominal pain. No dysuria or frequency. No lateralizing signs/symptoms. 03-16 APPEARS IMPROVED FROM EARLIER CONTINUE ANTIBIOTICS CONTINUE FLUIDS HOME PSYCHIATRIC MEDS RESTARTED AM LABS INCREASE ACTIVITY Physical Exam Vital signs: Vital Signs 03/15/18 17:06 03/15/18 23:01 03/16/18 06:03 Temperature 97.9 F Pulse Rate 109 H 85 80 Respiratory Rate 20 16 Blood Pressure 119/57 L 142/68 H 129/56 L Pulse Oximetry 96 97 03/16/18 07:40 Temperature Pulse Rate 77 Respiratory Rate 16 Blood Pressure 129/56 L Pulse Oximetry 97 Intake & Output 03/15/18 03/16/18 03/16/18 18:59 06:59 18:59 Weight 92.079 kg Narrative: Gen.: No acute distress Head: Normocephalic. Atraumatic. EENT: Pupils equal round and reactive to light. Nose without drainage. Airway intact. Throat without injection. Cardiovascular: Regular rate and rhythm. No murmurs, rubs or gallops. Respiratory: Lungs clear to auscultation bilaterally. No wheezes or rhonchi. Abdomen: Soft, nontender, nondistended. No peritoneal signs. Musculoskeletal: No gross deformities. No edema. Skin: No obvious rashes or erythema. Neuro: Sensory and motor grossly intact. Cranial nerves II through XII grossly intact. Results - Labs CBC & Chem 7: 03/15/18 22:45 03/15/18 22:45 Laboratory Results - last 24 hr 03/15/18 03/15/18 03/16/18 22:45 22:45 00:06 WBC 9.0 RBC 3.00 L Hgb 11.7 Hct 33.7 L MCV 112.4 H MCH 39.1 H MCHC 34.8 RDW 17.5 H Plt Count 188 MPV 9.9 Neut % (Auto) 73.4 H Lymph % (Auto) 13.3 [place] % (Auto) 12.5 H Eos % (Auto) 0.5 Baso % (Auto) 0.3 Neut # (Auto) 6.6 Lymph # (Auto) 1.2 [place] # (Auto) 1.1 H Eos # (Auto) 0.0 Baso # (Auto) 0.0 WBC Differential . Differential Comment Auto diff final Sodium 132 L Potassium 3.4 L Chloride 95 L Carbon Dioxide 23.3 Anion Gap 14 BUN 18 Creatinine 1.63 H Estimated GFR 33 L Random Glucose 111 H Lactic Acid 2.9 H Calcium 9.1 Total Bilirubin 1.0 AST 28 ALT 24 Alkaline Phosphatase 83 Lactate Dehydrogenase 195 Total Protein 7.1 Albumin 2.4 L Urine Color Urine Clarity Urine pH Ur Specific [place] Urine Protein Urine Glucose (UA) Urine Ketones Urine Occult Blood Urine Nitrate Urine Bilirubin Urine Urobilinogen Ur Leukocyte Esterase Urine RBC Urine WBC Ur Squamous Epith Cells Amorphous Sediment Urine Bacteria Hyaline Casts Urine Mucus Micro UA Comment Urine Culture Comments 03/16/18 03/16/18 01:45 02:28 WBC RBC Hgb Hct MCV MCH MCHC RDW Plt Count MPV Neut % (Auto) Lymph % (Auto) [place] % (Auto) Eos % (Auto) Baso % (Auto) Neut # (Auto) Lymph # (Auto) [place] # (Auto) Eos # (Auto) Baso # (Auto) WBC Differential Differential Comment Sodium Potassium Chloride Carbon Dioxide Anion Gap BUN Creatinine Estimated GFR Random Glucose Lactic Acid 2.2 H Calcium Total Bilirubin AST ALT Alkaline Phosphatase Lactate Dehydrogenase Total Protein Albumin Urine Color Yellow Urine Clarity Hazy H Urine pH 5.0 Ur Specific [place] 1.008 Urine Protein 30 H Urine Glucose (UA) Negative Urine Ketones Negative Urine Occult Blood Moderate H Urine Nitrate Negative Urine Bilirubin Negative Urine Urobilinogen Less than 2 Ur Leukocyte Esterase Moderate H Urine RBC 4 H Urine WBC 24 H Ur Squamous Epith Cells <1 Amorphous Sediment Rare H Urine Bacteria Many H Hyaline Casts 1 Urine Mucus Few H Micro UA Comment Cath-culture ind Urine Culture Comments Cath-cult indicated - Imaging Impressions Chest X-Ray 03/15/18 21:40 CONCLUSION: Chronic left lower lung subsegmental infiltrate. Assessment and Plan - Plan 1. UTI UA consistent with urinary tract infection Urine culture pending Elevated lactic acid, concern for early sepsis Blood cultures pending Rocephin 2. Acute kidney injury Creatinine 1.63, baseline approximately 1.0 IV fluid hydration Monitor renal function 3. Schizophrenia/depression Continue home psychiatric medications FEN Regular diet Electrolytes: Monitor and replete as needed, status post p.o. repletion of potassium NS at 100 cc/hour Code Status: FULL CODE Discussed Condition With: RN AND PT Discharge Planning: DC WHEN IMPROVED
[2018-03-16] MEDS ORDERED: Naloxone Inj 0.4 MG/ML Vial IV.PUSH PRN (14:09)
[2018-03-17] MEDS: Sod Chloride 0.9% Inj 1,000 ML IV.CONT SCH ×2 (09:00→19:39)
[2018-03-17] MEDS: Senna/Docusate Sodium 8.6/50 MG Tablet PO SCH ×2 (09:00→20:15)
[2018-03-17 10:24] LABS: Baso % (Auto) 0.4 % (0.0-2.0); Eos % (Auto) 0.6 % (0.0-4.0); Hemoglobin 10.6 gm/dL (11.6-15.3); Lymph # (Auto) 0.8 th/mm3 (1.0-4.8); Lymph % (Auto) 15.8 % (9.0-44.0); Mean Corpuscular HGB Conc 34.3 % (32.0-36.0); Mean Corpuscular Hemoglobin 39.2 pg (27.0-34.0); Mean Corpuscular Volume 114.2 fL (80.0-100.0); Mean Platelet Volume 9.7 fL (7.0-11.0); Mono # (Auto) 0.5 th/mm3 (0.0-0.9); Mono % (Auto) 10.1 % (0.0-8.0); Neut # (Auto) 3.9 th/mm3 (1.8-7.7); Neut % (Auto) 73.1 % (16.0-70.0); Platelet Count 160 th/mm3 (150-450); Red Blood Count 2.72 mil/mm3 (4.00-5.30); Red Cell Distribution Width 17.7 % (11.6-17.2); White Blood Count 5.3 th/mm3 (4.0-11.0)
--- NOTE | 2018-03-17 10:26 | P.PN ---
Subjective Interval history: This is a pleasant 57 y/o Female with Schizophrenia, Depression, seen in ER due to Generalized Weakness, fever cough, nausea and malaise, Dizziness and lightheadedness, No chest pain or shortness of breath. No abdominal pain. No dysuria or frequency. No lateralizing signs/symptoms. seen her Microbiology test and has E Coli in her Urine Gram Positive cocci one bottle may be a contamination but her blood culture for Gram Negative has two bottles only one needed for Bacteremia, I started her on Vancomycin and Cefepime, consult ID specialist and will need to repeat blood cultures and discontinued Ceftriaxone. Physical Exam Vital signs: Vital Signs 03/16/18 12:20 03/16/18 16:00 03/16/18 20:00 Temperature 98.0 F 97.5 F L 98.2 F Pulse Rate 89 91 H 105 H Respiratory Rate 16 18 18 Blood Pressure 124/87 128/73 135/73 Pulse Oximetry 97 97 03/16/18 22:00 03/17/18 00:00 03/17/18 08:00 Temperature 99.2 F 99.5 F 98.0 F Pulse Rate 106 H 88 82 Respiratory Rate 18 18 17 Blood Pressure 115/58 L 142/84 H 123/78 Pulse Oximetry 96 93 L 94 L Intake & Output 03/16/18 03/17/18 03/17/18 18:59 06:59 18:59 Intake Total 1720 / 1720 1100 / 1100 1000 / 1000 Output Total 700 / 700 400 / 400 Balance 1020 / 1020 700 / 700 1000 / 1000 Weight 97 kg Intake: IV 1000 / 1000 1100 / 1100 1000 / 1000 NS Inj 1,000 ML @ 100 mls/hr IV 1000 / 1000 1000 / 1000 1000 / 1000 .CONT .Q10H [facility] Rx#:[id number] Rocephin Inj 1,000 MG In NS Inj 100 / 100 100 ML @ 200 mls/hr IV.SIG Q24H [facility] Rx#:[id number] Oral 720 / 720 Output: Urine 400 / 400 Urine Amount (Catheter) 700 / 700 Indwelling Urethral Catheter 700 / 700 Narrative: Gen.: No acute distress Head: Normocephalic. Atraumatic. EENT: Pupils equal round and reactive to light. Nose without drainage. Airway intact. Throat without injection. Cardiovascular: Regular rate and rhythm. No murmurs, rubs or gallops. Respiratory: Lungs clear to auscultation bilaterally. No wheezes or rhonchi. Abdomen: Soft, nontender, nondistended. No peritoneal signs. Musculoskeletal: No gross deformities. No edema. Skin: No obvious rashes or erythema. Neuro: Sensory and motor grossly intact. Cranial nerves II through XII grossly intact. - Urinary Catheter Management Indwelling Urethral Catheter Cath placed during this visit: no Results - Labs CBC & Chem 7: 03/17/18 10:00 03/15/18 22:45 Laboratory Results - last 24 hr 03/16/18 01:45 Urine Color Yellow Urine Clarity Hazy H Urine pH 5.0 Ur Specific [place] 1.008 Urine Protein 30 H Urine Glucose (UA) Negative Urine Ketones Negative Urine Occult Blood Moderate H Urine Nitrate Negative Urine Bilirubin Negative Urine Urobilinogen Less than 2 Ur Leukocyte Esterase Moderate H Urine RBC 4 H Urine WBC 24 H Ur Squamous Epith Cells <1 Amorphous Sediment Rare H Urine Bacteria Many H Hyaline Casts 1 Urine Mucus Few H Micro UA Comment Cath-culture ind Urine Culture Comments Cath-cult indicated Microbiology 03/16/18 02:00 Blood - Line Aerobic Blood Culture - Preliminary gram positive cocci 03/16/18 02:25 Blood - Line Aerobic Blood Culture - Preliminary gram negative rods 03/16/18 02:25 Blood - Line Anaerobic Blood Culture - Preliminary gram negative rods 03/16/18 01:45 Catheterized Urine Urine Culture - Final Escherichia coli - Imaging Chest X-Ray 03/15/18 21:40 CONCLUSION: Chronic left lower lung subsegmental infiltrate. Assessment and Plan - Plan 1. UTI UA positive for infection, Urine culture positive for E coli started on Cefepime 2. Bacteremia secondary to Gram Negative Bacilli on Cefepime, Gram positive probable contamination will follow ID specialist recommendations 3. Acute Kidney injury Creatinine 1.63 awaiting laboratory for today not yet in EMR. 4. Schizophrenia/Depression continue home medicines. DVT prophylaxis with Heparin consult PT and discovery manager. Code Status: Full code. Discussed Condition With: Patient and nurse Miss Heck Discharge Planning: Expected in the next two days. may need Rehab.
[2018-03-17 11:08] LABS: Alanine Aminotransferase 20 U/L (10-53); Albumin 1.9 g/dL (3.4-5.0); Alkaline Phosphatase 80 U/L (45-117); Anion Gap 13 meq/L (5-15); Aspartate Aminotransferase 30 U/L (15-37); Blood Urea Nitrogen 14 mg/dL (7-18); Calcium 7.5 mg/dL (8.5-10.1); Carbon Dioxide 19.5 meq/L (21.0-32.0); Chloride 107 meq/L (98-107); Free T4 (Free Thyroxine) 1.37 ng/dL (0.76-1.46); Glomerular Filtration Rate 67 mL/min (>89); Glucose,Random 100 mg/dL (74-106); Magnesium 1.4 mg/dL (1.5-2.5); Phosphorus 2.8 mg/dL (2.5-4.9); Potassium 3.3 meq/L (3.5-5.1); Sodium 139 meq/L (136-145); Thyroid Stimulating Hormone 0.758 uIU/mL (0.358-3.740); Total Protein 6.2 g/dL (6.4-8.2)
[2018-03-17] MEDS: Heparin - SQ 10,000 UNITS/ML Vial SQ SCH ×2 (11:59→20:15)
[2018-03-17] MEDS ORDERED: Vancomycin Inj 1,250 MG in Sodium Chlor 0.9% Inj 250 ML IV.SIG ONE (12:00)
[2018-03-17 16:49] LABS: Hemoglobin A1c 5.6 % (4.3-6.0)
--- NOTE | 2018-03-17 17:56 | P.CONID ---
History of Present Illness Service: ID Consult date: 03/17/18 Requesting Physician: Hector Garcia Reason for Consult: bacteremia Primary Care Provider: No Primary Care Physician History of Present Illness: 57 yo female with schitzophrenia and depression presented yday with 1 day h/o generalyzed weakness Pt had fevers at home, slight cough, nausea and generalized malaise, dizziness and lightheadedness. No emesis or diarrhea. , No dysuria or frequency. UA was quite abnormal cw UTI Normal WBC, but + lactic acidemia BOrderline temp elevation Blood cultures positive for GNBs 3/, GPC in 1/ Urine clx with E.coli banda S Review of Systems All other systems reviewed negative except as stated in HPI PMFSH - History History Provided By: Patient - Medical History Medical History: Medical History (Last Reviewed 03/17/18 @ 17:48 by Kalyani Diallo MD) Schizophrenia - Surgical History Surgical History: Surgical History (Last Reviewed 03/17/18 @ 17:48 by Kalyani Diallo MD) Hx of tonsillectomy - Family History Family History: Family History (Last Reviewed 03/17/18 @ 17:48 by Kalyani Diallo MD) Other Family history normal - Tobacco History Second Hand Smoke Exposure: Yes Tobacco Use In Past 30 Days: Yes Smoking Status: Current every day smoker Tobacco Type: Cigarettes - Alcohol History How Often Do You Have a Drink Containing Alcohol: 4 or more times a week - Substance Use History Substance History: Active Abuse - Substance Use Type Marijuana Status: Active Route Used: Inhalation Reason for Use: Get High - Travel History Recent Travel in the [place] Within the Last 8 Weeks: No Recent Travel Out of the Country Within the Last 8 Weeks: No - Immunization History Tetanus Immunization: Unsure Hx Influenza Vaccine This Season: No Medications and Allergies Active Medications: Active Medications Acetaminophen (Tylenol) 650 mg PO Q4H PRN PRN Reason: Temp > 100.4 Hydrocodone Bitart/Acetaminophen (Shiro 5/325) 1 tab PO Q4H PRN PRN Reason: PAIN SCALE 3 TO 5 Hydrocodone Bitart/Acetaminophen (Shiro 10/325) 1 tab PO Q4H PRN PRN Reason: PAIN SCALE 6 TO 10 Al Hydroxide/Mg Hydroxide (Milk Of Magnesia Liq) 30 ml PO Q12H PRN PRN Reason: Mild Constipation Bisacodyl (Dulcolax Supp) 10 mg RECTAL DAILY PRN PRN Reason: SEVERE CONSITIPATION Citalopram Hydrobromide (Celexa) 40 mg PO DAILY [facility] Last Admin: 03/17/18 09:00 Dose: 40 mg Heparin Sodium (Porcine) (Heparin Inj) 5,000 units SQ Q12HR [facility] Last Admin: 03/17/18 11:59 Dose: 5,000 units Sodium Chloride (Ns Inj) 1,000 mls @ 100 mls/hr IV.CONT .Q10H [facility] Last Admin: 03/17/18 09:00 Dose: 100 mls/hr Cefepime HCl 2,000 mg/ Sodium (Chloride) 100 mls @ 200 mls/hr IV.SIG Q24HR [facility] Lactulose (Lactulose Liq) 30 ml PO DAILY PRN PRN Reason: SEVERE CONSITIPATION Naloxone HCl (Narcan Inj) 0.4 mg IV.PUSH UNSCH PRN PRN Reason: SEE LABEL COMMENTS Ondansetron HCl (Zofran Inj) 4 mg IV.PUSH Q6H PRN PRN Reason: NAUSEA OR VOMITING Risperidone (Risperdal) 1 mg PO DAILY [facility] Last Admin: 03/17/18 09:00 Dose: 1 mg Risperidone (Risperdal) 4 mg PO [facility] Last Admin: 03/16/18 20:37 Dose: 4 mg Senna/Docusate Sodium (Amber-Colace) 1 tab PO BID [facility] Last Admin: 03/17/18 09:00 Dose: 1 tab Sennosides (Senokot) 17.2 mg PO Q12H PRN PRN Reason: Moderate Constipation Sodium Chloride (Ns Flush) 2 ml IV.FLUSH PRN PRN PRN Reason: FLUSH AFTER USING IV ACCESS Trihexyphenidyl HCl (Artane) 5 mg PO [facility] Last Admin: 03/16/18 20:37 Dose: 5 mg Allergies Allergy/AdvReac Type Severity Reaction Status Date / Time No Known Allergies Allergy Verified 03/16/18 02:38 Home Medications Medication Instructions Recorded Confirmed Type citalopram 40 mg PO DAILY 03/16/18 03/16/18 History risperidone 1 mg PO QAM 03/16/18 03/16/18 History risperidone [Risperdal] 4 mg PO 03/16/18 03/16/18 History trihexyphenidyl 5 mg PO HS 03/16/18 03/16/18 History Exam Vital signs: Vital Signs 03/16/18 20:00 03/16/18 22:00 03/17/18 00:00 Temperature 98.2 F 99.2 F 99.5 F Pulse Rate 105 H 106 H 88 Respiratory Rate 18 18 18 Blood Pressure 135/73 115/58 L 142/84 H Pulse Oximetry 97 96 93 L 03/17/18 08:00 03/17/18 12:00 03/17/18 16:00 Temperature 98.0 F 97.3 F L 97.7 F Pulse Rate 82 83 83 Respiratory Rate 17 19 19 Blood Pressure 123/78 157/91 H 156/95 H Pulse Oximetry 94 L 94 L 96 Intake & Output 03/16/18 03/17/18 03/17/18 18:59 06:59 18:59 Intake Total 1720 / 1720 1100 / 1100 1262.5 / 1262.5 Output Total 700 / 700 400 / 400 Balance 1020 / 1020 700 / 700 1262.5 / 1262.5 Weight 97 kg Intake: IV 1000 / 1000 1100 / 1100 1262.5 / 1262.5 NS Inj 1,000 ML @ 100 mls/hr IV 1000 / 1000 1000 / 1000 1000 / 1000 .CONT .Q10H [facility] Rx#:[id number] Vancomycin Inj 1,250 MG In NS 262.5 / 262.5 Inj 250 ML @ 250 mls/hr IV.SIG ONCE ONE Rx#:[id number] Rocephin Inj 1,000 MG In NS Inj 100 / 100 100 ML @ 200 mls/hr IV.SIG Q24H [facility] Rx#:[id number] Oral 720 / 720 Output: Urine 400 / 400 Urine Amount (Catheter) 700 / 700 Indwelling Urethral Catheter 700 / 700 - Constitutional no acute distress, obese - Routine HEENT Exam Head: Present: normocephalic, atraumatic Eye: Present: EOMI, PERRL ENT: Present: mucous membranes moist, oropharynx clear - Routine Neck Exam Present: supple, full ROM - Routine Respiratory Exam Present: CTA bilaterally Comments: good effort - Routine Cardiovascular Exam Present: RRR, S1, S2 Comments: no murmurs, rubs, gallops - Routine Abdominal Exam Present: soft, normoactive bowel sounds Comments: not tender, not distended no masses, no organomegaly - Routine Exam Comments: No CVA tenderness b/l - Routine Extremities Exam Comments: no cyanosis no clubbing or edema - Routine Skin Exam Present: intact, dry, warm - Routine Neurological Exam Present: alert, oriented X3, CN II-XII intact, moving all extremities, vision grossly intact, hearing grossly intact, normal speech - Routine Psychiatric Exam Present: normal affect, cooperative Results - Labs CBC & Chem 7: 03/17/18 10:00 03/17/18 10:00 Labs: Laboratory Results - last 24 hr 03/17/18 03/17/18 10:00 10:00 WBC 5.3 RBC 2.72 L Hgb 10.6 L Hct 31.0 L MCV 114.2 H MCH 39.2 H MCHC 34.3 RDW 17.7 H Plt Count 160 MPV 9.7 Neut % (Auto) 73.1 H Lymph % (Auto) 15.8 [place] % (Auto) 10.1 H Eos % (Auto) 0.6 Baso % (Auto) 0.4 Neut # (Auto) 3.9 Lymph # (Auto) 0.8 L [place] # (Auto) 0.5 Eos # (Auto) 0.0 Baso # (Auto) 0.0 WBC Differential . Differential Comment Auto diff final Sodium 139 Potassium 3.3 L Chloride 107 D Carbon Dioxide 19.5 L Anion Gap 13 BUN 14 Creatinine 0.87 Estimated GFR 67 L Random Glucose 100 Calcium 7.5 L D Phosphorus 2.8 Magnesium 1.4 L Total Bilirubin 0.5 AST 30 ALT 20 Alkaline Phosphatase 80 Total Protein 6.2 L D Albumin 1.9 L TSH 0.758 Free T4 1.37 - Imaging Chest X-Ray 03/15/18 21:40 CONCLUSION: Chronic left lower lung subsegmental infiltrate. Assessment and Plan - Plan UTI, E.coli -banda S Sepsis, E.coli 2/2 UTI Gram positive bacteremia- doubt aida significance, low grade change cefepime to CFTX fu P blood clx further rec's to follow per final blood clx report and clinical progress
[2018-03-18] MEDS: Sod Chloride 0.9% Inj 1,000 ML IV.CONT SCH ×2 (05:39→18:27)
[2018-03-18] MEDS: Senna/Docusate Sodium 8.6/50 MG Tablet PO SCH ×2 (08:56→20:43)
[2018-03-18] MEDS: Heparin - SQ 10,000 UNITS/ML Vial SQ SCH ×2 (08:56→20:44)
--- NOTE | 2018-03-18 15:17 | P.PN ---
Subjective Interval history: This is a pleasant 57 y/o Female with Schizophrenia, Depression, seen in ER due to Generalized Weakness, fever cough, nausea and malaise, Dizziness and lightheadedness, No chest pain or shortness of breath. No abdominal pain. No dysuria or frequency. No lateralizing signs/symptoms. seen her Microbiology test and has E Coli in her Urine Gram Positive cocci one bottle may be a contamination but her blood culture for Gram Negative has two bottles only one needed for Bacteremia, I started her on Vancomycin and Cefepime, consult ID specialist and will need to repeat blood cultures and discontinued Ceftriaxone. 03/18: Seen by ID specialist recommended for her Gram negative to continue Ceftriaxone, patient stable in her bedroom continue PT on daily bases and awaiting final by ID specialist for discharge. no nausea, vomit or diarrhea. Physical Exam Vital signs: Vital Signs 03/17/18 16:00 03/17/18 18:00 03/17/18 20:00 Temperature 97.7 F Pulse Rate 83 83 84 Respiratory Rate 19 Blood Pressure 156/95 H Pulse Oximetry 96 03/17/18 20:42 03/18/18 00:35 03/18/18 02:54 Temperature 97.3 F L 97.9 F Pulse Rate 87 88 92 H Respiratory Rate 20 18 Blood Pressure 152/82 H 165/88 H Pulse Oximetry 97 96 03/18/18 04:00 03/18/18 04:36 03/18/18 08:00 Temperature 97.4 F L 97.9 F Pulse Rate 84 99 H 84 Respiratory Rate 18 19 Blood Pressure 172/86 H 138/71 Pulse Oximetry 98 97 03/18/18 08:58 03/18/18 12:00 Temperature 97.8 F Pulse Rate 80 87 Respiratory Rate 18 Blood Pressure 159/84 H Pulse Oximetry 96 Intake & Output 03/17/18 03/18/18 03/18/18 18:59 06:59 18:59 Intake Total 2862.5 / 2862.5 2680 / 2680 Balance 2862.5 / 2862.5 2680 / 2680 Weight 97 kg Intake: IV 1262.5 / 1262.5 2100 / 2100 NS Inj 1,000 ML @ 100 mls/hr IV 1000 / 1000 1999 / 1999 .CONT .Q10H [facility] Rx#:[id number] Vancomycin Inj 1,250 MG In NS 262.5 / 262.5 Inj 250 ML @ 250 mls/hr IV.SIG ONCE ONE Rx#:[id number] Rocephin Inj 1,000 MG In NS Inj 100 / 100 100 ML @ 200 mls/hr IV.SIG Q24H [facility] Rx#:[id number] Oral 1600 / 1600 580 / 580 Other: # Voids 3 3 # Bowel Movements 0 0 Narrative: Gen.: No acute distress Head: Normocephalic. Atraumatic. EENT: Pupils equal round and reactive to light. Nose without drainage. Airway intact. Throat without injection. Cardiovascular: Regular rate and rhythm. No murmurs, rubs or gallops. Respiratory: Lungs clear to auscultation bilaterally. No wheezes or rhonchi. Abdomen: Soft, nontender, nondistended. No peritoneal signs. Musculoskeletal: No gross deformities. No edema. Skin: No obvious rashes or erythema. Neuro: Sensory and motor grossly intact. Cranial nerves II through XII grossly intact. - Urinary Catheter Management Indwelling Urethral Catheter Cath placed during this visit: no Results - Labs CBC & Chem 7: 03/17/18 10:00 03/17/18 10:00 Laboratory Results - last 24 hr 03/17/18 10:00 Hemoglobin A1c 5.6 Microbiology 03/16/18 02:00 Blood - Line Aerobic Blood Culture - Preliminary Staphylococcus coag negative 03/16/18 02:00 Blood - Line Anaerobic Blood Culture - Preliminary No growth in 2 days 03/16/18 02:25 Blood - Line Aerobic Blood Culture - Preliminary Escherichia coli 03/16/18 02:25 Blood - Line Anaerobic Blood Culture - Final Escherichia coli Assessment and Plan - Plan 1. UTI UA positive for infection, Urine culture positive for E coli Removed Cefepime by ID specialist and continued on Ceftriaxone. 2. Bacteremia secondary to Gram Negative Bacilli on switched by ID to Ceftriaxone. 3. Acute Kidney injury Creatinine 1.63 awaiting laboratory for today not yet in EMR. 4. Schizophrenia/Depression continue home medicines. 5. Physical Deconditioning working with PT every day DVT prophylaxis with Heparin consult PT and clinical care manager. Code Status: Full Code. Discussed Condition With: Patient, nurse and MDR. Discharge Planning: Expected in the next two days. may need Rehab.
[2018-03-19] MEDS: Sod Chloride 0.9% Inj 1,000 ML IV.CONT SCH ×3 (02:10→23:40)
[2018-03-19] MEDS: Heparin - SQ 10,000 UNITS/ML Vial SQ SCH ×2 (09:45→20:45)
[2018-03-19] MEDS: Senna/Docusate Sodium 8.6/50 MG Tablet PO SCH ×2 (09:45→20:46)
--- NOTE | 2018-03-19 13:02 | P.PN ---
Subjective Interval history: This is a pleasant 57 y/o Female with Schizophrenia, Depression, seen in ER due to Generalized Weakness, fever cough, nausea and malaise, Dizziness and lightheadedness, No chest pain or shortness of breath. No abdominal pain. No dysuria or frequency. No lateralizing signs/symptoms. seen her Microbiology test and has E Coli in her Urine Gram Positive cocci one bottle may be a contamination but her blood culture for Gram Negative has two bottles only one needed for Bacteremia, I started her on Vancomycin and Cefepime, consult ID specialist and will need to repeat blood cultures and discontinued Ceftriaxone. 03/18: Seen by ID specialist recommended for her Gram negative to continue Ceftriaxone, patient stable in her bedroom continue PT on daily bases and awaiting final by ID specialist for discharge. 03/19: Stable in her bedroom, no complaint by patient, no nausea, vomit or diarrhea, working with Physical Therapy as per ID specialist UTI, E Coli positive pansensitive, Gram positive Bacteremia Staph [place] / Bottles no clinical significance changed Ceftriaxone to Levaquin and okay to discharge from ID specialist standpoint, will need artist relationship manager for discharge if not possible during the weekend on Wednesday. will need to complete 14 days through 02/26, on Levaquin by mouth or Cipro 500 mg BID. Physical Exam Vital signs: Vital Signs 03/18/18 16:00 03/18/18 20:00 03/19/18 00:00 Temperature 97.4 F L 97.8 F 98.7 F Pulse Rate 85 83 86 Respiratory Rate 18 20 20 Blood Pressure 144/79 H 152/80 H 135/94 H Pulse Oximetry 97 98 99 03/19/18 04:00 03/19/18 08:00 03/19/18 12:00 Temperature 97.4 F L 97.1 F L 97.4 F L Pulse Rate 85 87 78 Respiratory Rate 20 20 18 Blood Pressure 157/77 H 168/96 H 146/88 H Pulse Oximetry 97 97 96 Intake & Output 03/18/18 03/19/18 03/19/18 18:59 06:59 18:59 Intake Total 2180 / 2180 1580 / 1580 Output Total 175 / 175 Balance 2004 1580 / 1580 Weight 98.5 kg Intake: IV 1000 / 1000 1100 / 1100 NS Inj 1,000 ML @ 100 mls/hr IV 1000 / 1000 1000 / 1000 .CONT .Q10H [facility] Rx#:[id number] Rocephin Inj 1,000 MG In NS Inj 100 / 100 100 ML @ 200 mls/hr IV.SIG Q24H [facility] Rx#:[id number] Oral 1180 / 1180 480 / 480 Output: Urine 175 / 175 Other: # Voids 8 3 Narrative: Gen.: No acute distress Head: Normocephalic. Atraumatic. EENT: Pupils equal round and reactive to light. Nose without drainage. Airway intact. Throat without injection. Cardiovascular: Regular rate and rhythm. No murmurs, rubs or gallops. Respiratory: Lungs clear to auscultation bilaterally. No wheezes or rhonchi. Abdomen: Soft, nontender, nondistended. No peritoneal signs. Musculoskeletal: No gross deformities. No edema. Skin: No obvious rashes or erythema. Neuro: Sensory and motor grossly intact. Cranial nerves II through XII grossly intact. - Urinary Catheter Management Indwelling Urethral Catheter Cath placed during this visit: no Results - Labs CBC & Chem 7: 03/17/18 10:00 03/17/18 10:00 Microbiology 03/16/18 02:00 Blood - Line Aerobic Blood Culture - Preliminary Staphylococcus coag negative 03/16/18 02:00 Blood - Line Anaerobic Blood Culture - Preliminary No growth in 3 days 03/16/18 02:25 Blood - Line Aerobic Blood Culture - Final Escherichia coli 03/16/18 02:25 Blood - Line Anaerobic Blood Culture - Final Escherichia coli Assessment and Plan - Plan 1. UTI ID specialist UTI, E Coli positive pansensitive, Gram positive Bacteremia Staph Hominis 07/29 Bottles no clinical significance changed Ceftriaxone to Levaquin and okay to discharge from ID specialist standpoint, will need artist relationship manager for discharge if not possible during the weekend on Wednesday. will need to complete 14 days through 02/26, on Levaquin by mouth or Cipro 500 mg BID. 2. Bacteremia secondary to Gram Negative Bacilli on switched by ID to Ceftriaxone. 3. Acute Kidney injury Creatinine 1.63 awaiting laboratory for today not yet in EMR. 4. Schizophrenia/Depression continue home medicines. 5. Physical Deconditioning working with PT every day 6. Hypertension uncontrolled she was not hypertensive on admission following. DVT prophylaxis with Heparin consult PT and artist relationship manager. Code Status: Full Code. Discussed Condition With: Patient and Nurse. Discharge Planning: Discharge to Rehab once ready by Enterprise Application Administrator.
--- NOTE | 2018-03-19 17:19 | P.PNID ---
Subjective Remarks: doing OK no fever no neew complaints Antibiotics: CFTX Allergies/Adverse Reactions: Allergies No Known Allergies Allergy (Verified 03/16/18 02:38) Objective Vital Signs 03/18/18 20:00 03/19/18 00:00 03/19/18 04:00 Temperature 97.8 F 98.7 F 97.4 F L Pulse Rate 83 86 85 Respiratory Rate 20 20 20 Blood Pressure 152/80 H 135/94 H 157/77 H Pulse Oximetry 98 99 97 03/19/18 08:00 03/19/18 12:00 03/19/18 16:00 Temperature 97.1 F L 97.4 F L 97.8 F Pulse Rate 87 78 79 Respiratory Rate 20 18 18 Blood Pressure 168/96 H 146/88 H 134/75 Pulse Oximetry 97 96 97 Intake & Output 03/18/18 03/19/18 03/19/18 18:59 06:59 18:59 Intake Total 2180 / 2180 1580 / 1580 1000 / 1000 Output Total 175 / 175 Balance 2004 1580 / 1580 1000 / 1000 Weight 98.5 kg Intake: IV 1000 / 1000 1100 / 1100 1000 / 1000 NS Inj 1,000 ML @ 100 mls/hr IV 1000 / 1000 1000 / 1000 1000 / 1000 .CONT .Q10H [facility] Rx#:[id number] Rocephin Inj 1,000 MG In NS Inj 100 / 100 100 ML @ 200 mls/hr IV.SIG Q24H [facility] Rx#:[id number] Oral 1180 / 1180 480 / 480 Output: Urine 175 / 175 Other: # Voids 8 3 03/16/18 02:00 Blood - Line Aerobic Blood Culture - Final Staphylococcus hominis-hominis 03/16/18 02:00 Blood - Line Anaerobic Blood Culture - Preliminary No growth in 3 days 03/16/18 02:25 Blood - Line Aerobic Blood Culture - Final Escherichia coli 03/16/18 02:25 Blood - Line Anaerobic Blood Culture - Final Escherichia coli 03/16/18 01:45 Catheterized Urine Urine Culture - Final Escherichia coli Lab - Chemistry Results 03/17/18 10:00 Hemoglobin A1c 5.6 Imaging: ITS Impressions Chest X-Ray 03/15/18 21:40 CONCLUSION: Chronic left lower lung subsegmental infiltrate. Physical Exam: GENERAL: NAD SKIN: Warm and dry. No rash HEAD: Normocephalic. EYES: No scleral icterus. No injection or drainage. NECK: Supple, trachea midline. No JVD or lymphadenopathy. CARDIOVASCULAR: Regular rate and rhythm RESPIRATORY: Breath unlaboured. No accessory muscle use. GASTROINTESTINAL: Abdomen soft, non-tender, nondistended. MUSCULOSKELETAL: No cyanosis, or edema. NEURO: awake, alert, non focal PSYCH: cooperative, calm Assessment and Plan - Plan UTI, E.coli -banda S Sepsis, E.coli 2/2 UTI Gram positive bacteremia, Staph hominins / bottles, no clinical signoficance change CFTX to Levaquine OK to dc from ID [facility] COmplete 14 days of tx ( thru 03/29) Pt can be switched to PO levaquin 500 daily or PO cipro 500 bid
[2018-03-19] MEDS: Levofloxacin 500 mg Premix Inj 500 MG/100 ML PIGGYBACK IV.SIG SCH (18:43)
[2018-03-20] MEDS: Sod Chloride 0.9% Inj 1,000 ML IV.CONT SCH (07:36)
[2018-03-20] MEDS: Senna/Docusate Sodium 8.6/50 MG Tablet PO SCH ×2 (09:05→21:43)
[2018-03-20] MEDS: Heparin - SQ 10,000 UNITS/ML Vial SQ SCH ×2 (09:05→21:43)
--- NOTE | 2018-03-20 10:12 | P.PN ---
Subjective Interval history: This is a pleasant 57 y/o Female with Schizophrenia, Depression, seen in ER due to Generalized Weakness, fever cough, nausea and malaise, Dizziness and lightheadedness, No chest pain or shortness of breath. No abdominal pain. No dysuria or frequency. No lateralizing signs/symptoms. seen her Microbiology test and has E Coli in her Urine Gram Positive cocci one bottle may be a contamination but her blood culture for Gram Negative has two bottles only one needed for Bacteremia, I started her on Vancomycin and Cefepime, consult ID specialist and will need to repeat blood cultures and discontinued Ceftriaxone. 03/18: Seen by ID specialist recommended for her Gram negative to continue Ceftriaxone, patient stable in her bedroom continue PT on daily bases and awaiting final by ID specialist for discharge. 03/19: Stable in her bedroom, no complaint by patient, no nausea, vomit or diarrhea, working with Physical Therapy as per ID specialist UTI, E Coli positive pansensitive, Gram positive Bacteremia Staph Hominis / Bottles no clinical significance changed Ceftriaxone to Levaquin and okay to discharge from ID specialist standpoint, will need direct marketing manager for discharge if not possible during the weekend on Wednesday. will need to complete 14 days through 02/26, on Levaquin by mouth or Cipro 500 mg BID. 03/20: Seen in her bedroom, will go to Rehab facility discussed with nurse Miss Lemon she is having Uncontrolled blood pressure and is not on IV fluids, added Amlodipine and will need to follow in Rehab facility. no nausea, vomit or diarrhea. Physical Exam Vital signs: Vital Signs 03/19/18 12:00 03/19/18 16:00 03/19/18 20:00 Temperature 97.4 F L 97.8 F 97.5 F L Pulse Rate 78 79 87 Respiratory Rate 18 18 18 Blood Pressure 146/88 H 134/75 163/79 H Pulse Oximetry 96 97 96 03/19/18 23:23 03/20/18 00:00 03/20/18 04:00 Temperature 97.5 F L 98.0 F 98.1 F Pulse Rate 76 86 88 Respiratory Rate 18 18 18 Blood Pressure 163/79 H 142/64 H 164/91 H Pulse Oximetry 96 92 L 96 03/20/18 08:00 Temperature 97.2 F L Pulse Rate 94 H Respiratory Rate 22 Blood Pressure 181/91 H Pulse Oximetry 96 Intake & Output 03/19/18 03/20/18 03/20/18 18:59 06:59 18:59 Intake Total 1800 / 1800 1100 / 1100 Output Total 250 / 250 Balance 1800 / 1800 850 / 850 Weight 101.1 kg Intake: IV 1000 / 1000 1100 / 1100 NS Inj 1,000 ML @ 100 mls/hr IV 1000 / 1000 1000 / 1000 .CONT .Q10H [facility] Rx#:[id number] Levaquin 500 mg Premix Inj 500 100 / 100 mg In 100 ml @ 100 mls/hr IV. SIG Q24H [facility] Rx#:[id number] Oral 800 / 800 Output: Urine 250 / 250 Other: # Voids 4 1 Narrative: Gen.: No acute distress Head: Normocephalic. Atraumatic. EENT: Pupils equal round and reactive to light. Nose without drainage. Airway intact. Throat without injection. Cardiovascular: Regular rate and rhythm. No murmurs, rubs or gallops. Respiratory: Lungs clear to auscultation bilaterally. No wheezes or rhonchi. Abdomen: Soft, nontender, nondistended. No peritoneal signs. Musculoskeletal: No gross deformities. No edema. Skin: No obvious rashes or erythema. Neuro: Sensory and motor grossly intact. Cranial nerves II through XII grossly intact. - Urinary Catheter Management Indwelling Urethral Catheter Cath placed during this visit: no Results - Labs CBC & Chem 7: 03/17/18 10:00 03/17/18 10:00 Microbiology 03/16/18 02:00 Blood - Line Aerobic Blood Culture - Final Staphylococcus hominis-hominis 03/16/18 02:00 Blood - Line Anaerobic Blood Culture - Preliminary No growth in 3 days 03/16/18 02:25 Blood - Line Aerobic Blood Culture - Final Escherichia coli 03/16/18 02:25 Blood - Line Anaerobic Blood Culture - Final Escherichia coli Assessment and Plan - Plan 1. UTI ID specialist UTI, E Coli positive pansensitive, Gram positive Bacteremia Staph Hominis 07/29 Bottles no clinical significance changed Ceftriaxone to Levaquin and okay to discharge from ID specialist standpoint, will need direct marketing manager for discharge if not possible during the weekend on Wednesday. will need to complete 14 days through 02/26, on Levaquin by mouth or Cipro 500 mg BID. 2. Bacteremia secondary to Gram Negative Bacilli on switched by ID to Ceftriaxone. 3. Acute Kidney injury Improved. 4. Schizophrenia/Depression continue home medicines. 5. Physical Deconditioning working with PT every day 6. Hypertension uncontrolled started on Amlodipine. DVT prophylaxis with Heparin consult PT and direct marketing manager. Code Status: Full Code. Discussed Condition With: Patient and nurse Miss Lemon. Discharge Planning: Okay to discharge from medicine standpoint, she will need Rehab but has no insurance so as per Fish Hatchery Assistant will need to be inhouse until walking better.
[2018-03-20] MEDS: amLODIPine 5 MG Tablet PO SCH (12:03)
[2018-03-20] MEDS: Levofloxacin 500 mg Premix Inj 500 MG/100 ML PIGGYBACK IV.SIG SCH (18:52)
[2018-03-21] MEDS: Heparin - SQ 10,000 UNITS/ML Vial SQ SCH ×2 (08:25→21:04)
[2018-03-21] MEDS: Senna/Docusate Sodium 8.6/50 MG Tablet PO SCH ×2 (08:25→21:04)
[2018-03-21] MEDS: amLODIPine 5 MG Tablet PO SCH (08:25)
--- NOTE | 2018-03-21 14:20 | P.PN ---
Subjective Interval history: This is a pleasant 57 y/o Female with Schizophrenia, Depression, seen in ER due to Generalized Weakness, fever cough, nausea and malaise, Dizziness and lightheadedness, No chest pain or shortness of breath. No abdominal pain. No dysuria or frequency. No lateralizing signs/symptoms. seen her Microbiology test and has E Coli in her Urine Gram Positive cocci one bottle may be a contamination but her blood culture for Gram Negative has two bottles only one needed for Bacteremia, I started her on Vancomycin and Cefepime, consult ID specialist and will need to repeat blood cultures and discontinued Ceftriaxone. 03/18: Seen by ID specialist recommended for her Gram negative to continue Ceftriaxone, patient stable in her bedroom continue PT on daily bases and awaiting final by ID specialist for discharge. 03/19: Stable in her bedroom, no complaint by patient, no nausea, vomit or diarrhea, working with Physical Therapy as per ID specialist UTI, E Coli positive pansensitive, Gram positive Bacteremia Staph Hominis / Bottles no clinical significance changed Ceftriaxone to Levaquin and okay to discharge from ID specialist standpoint, will need legal department manager for discharge if not possible during the weekend on Wednesday. will need to complete 14 days through 02/26, on Levaquin by mouth or Cipro 500 mg BID. 03/20: Seen in her bedroom, will go to Rehab facility discussed with nurse Miss Lemon she is having Uncontrolled blood pressure and is not on IV fluids, added Amlodipine and will need to follow in Rehab facility. 03/21: Discussed with patient and Nurse Miss Glez and with Physical therapy not yet ready for discharge, she needed two persons assist today, she has discharge order to Rehab but no Insurance to send her to SNF, will need to continue Rehabilitation in house no nausea, vomit or diarrhea. Physical Exam Vital signs: Vital Signs 03/20/18 16:00 03/20/18 20:00 03/21/18 00:00 Temperature 97.5 F L 98.3 F 97.5 F L Pulse Rate 82 88 95 H Respiratory Rate 20 18 18 Blood Pressure 155/86 H 160/77 H 149/77 H Pulse Oximetry 99 97 96 03/21/18 00:02 03/21/18 04:00 03/21/18 08:00 Temperature 97.9 F 97.3 F L Pulse Rate 87 91 H 87 Respiratory Rate 18 20 Blood Pressure 164/99 H 136/82 Pulse Oximetry 92 L 96 03/21/18 12:00 Temperature 97.5 F L Pulse Rate 87 Respiratory Rate 18 Blood Pressure 122/79 Pulse Oximetry 96 Intake & Output 03/20/18 03/21/18 03/21/18 18:59 06:59 18:59 Intake Total 1400 / 1400 1340 / 1340 Output Total 800 / 800 Balance 600 / 600 1340 / 1340 Weight 99.4 kg Intake: IV 1100 / 1100 NS Inj 1,000 ML @ 100 mls/hr IV 1000 / 1000 .CONT .Q10H [facility] Rx#:[id number] Levaquin 500 mg Premix Inj 500 100 / 100 mg In 100 ml @ 100 mls/hr IV. SIG Q24H [facility] Rx#:[id number] Oral 1400 / 1400 240 / 240 Output: Urine 800 / 800 Other: # Voids 1 Date of Last Bowel Movement 03/20/18 # Bowel Movements 1 2 Narrative: Gen.: No acute distress Head: Normocephalic. Atraumatic. EENT: Pupils equal round and reactive to light. Nose without drainage. Airway intact. Throat without injection. Cardiovascular: Regular rate and rhythm. No murmurs, rubs or gallops. Respiratory: Lungs clear to auscultation bilaterally. No wheezes or rhonchi. Abdomen: Soft, nontender, nondistended. No peritoneal signs. Musculoskeletal: No gross deformities. No edema. Skin: No obvious rashes or erythema. Neuro: Sensory and motor grossly intact. Cranial nerves II through XII grossly intact. - Urinary Catheter Management Indwelling Urethral Catheter Cath placed during this visit: no Results - Labs CBC & Chem 7: 03/17/18 10:00 03/17/18 10:00 Microbiology 03/16/18 02:00 Blood - Line Aerobic Blood Culture - Final Staphylococcus hominis-hominis 03/16/18 02:00 Blood - Line Anaerobic Blood Culture - Final No growth in 5 days Assessment and Plan - Plan 1. UTI ID specialist UTI, E Coli positive pansensitive, Gram positive Bacteremia Staph Hominis / Bottles no clinical significance changed Ceftriaxone to Levaquin and okay to discharge from ID specialist standpoint, will need legal department manager for discharge if not possible during the weekend on Wednesday. will need to complete 14 days through 8/04, on Levaquin by mouth or Cipro 500 mg BID. 2. Bacteremia secondary to Gram Negative Bacilli now on Levaquin. 3. Acute Kidney injury Improved. 4. Schizophrenia/Depression continue home medicines. 5. Physical Deconditioning working with PT every day 6. Hypertension uncontrolled started on Amlodipine. better today. DVT prophylaxis with Heparin consult PT and legal department manager. Code Status: full Code. Discussed Condition With: Patient and nurse Miss Glez and Physical Therapy Discharge Planning: Okay to discharge from medicine standpoint, she will need Rehab but has no insurance so as per Machine Stripper will need to be inhouse until walking better.
[2018-03-21] MEDS: Levofloxacin 500 mg Premix Inj 500 MG/100 ML PIGGYBACK IV.SIG SCH (17:02)
[2018-03-22] MEDS: Senna/Docusate Sodium 8.6/50 MG Tablet PO SCH ×3 (09:15→21:34)
[2018-03-22] MEDS: Heparin - SQ 10,000 UNITS/ML Vial SQ SCH ×2 (09:16→21:35)
[2018-03-22] MEDS: amLODIPine 5 MG Tablet PO SCH (09:16)
[2018-03-22] MEDS: Levofloxacin 500 mg Premix Inj 500 MG/100 ML PIGGYBACK IV.SIG SCH (17:00)
--- NOTE | 2018-03-22 18:08 | P.PN ---
Subjective Interval history: This is a pleasant 57 y/o Female with Schizophrenia, Depression, seen in ER due to Generalized Weakness, fever cough, nausea and malaise, Dizziness and lightheadedness, No chest pain or shortness of breath. No abdominal pain. No dysuria or frequency. No lateralizing signs/symptoms. seen her Microbiology test and has E Coli in her Urine Gram Positive cocci one bottle may be a contamination but her blood culture for Gram Negative has two bottles only one needed for Bacteremia, I started her on Vancomycin and Cefepime, consult ID specialist and will need to repeat blood cultures and discontinued Ceftriaxone. 03/18: Seen by ID specialist recommended for her Gram negative to continue Ceftriaxone, patient stable in her bedroom continue PT on daily bases and awaiting final by ID specialist for discharge. 03/19: Stable in her bedroom, no complaint by patient, no nausea, vomit or diarrhea, working with Physical Therapy as per ID specialist UTI, E Coli positive pansensitive, Gram positive Bacteremia Staph Hominis / Bottles no clinical significance changed Ceftriaxone to Levaquin and okay to discharge from ID specialist standpoint, will need traffic incident management manager for discharge if not possible during the weekend on Wednesday. will need to complete 14 days through 02/26, on Levaquin by mouth or Cipro 500 mg BID. 03/20: Seen in her bedroom, will go to Rehab facility discussed with nurse Miss Lemon she is having Uncontrolled blood pressure and is not on IV fluids, added Amlodipine and will need to follow in Rehab facility. 03/21: Discussed with patient and Nurse Miss Munozah and with Physical therapy not yet ready for discharge, she needed two persons assist today, she has discharge order to Rehab but no Insurance to send her to SNF, will need to continue Rehabilitation in house 03/22: seen in her bedroom, discussed with nurse and on MDR. she is alert and oriented x 3, so I don't think she has Neurological issues, she had an MRI of the Brain recently. follow if there is any improvement with Physical Therapy otherwise will need Neurology consult, and studies again. no nausea, vomit or diarrhea. Physical Exam Vital signs: Vital Signs 03/21/18 20:43 03/22/18 00:40 03/22/18 05:00 Temperature 97.7 F 98.3 F 98.4 F Pulse Rate 88 87 97 H Respiratory Rate 20 18 18 Blood Pressure 149/86 H 166/79 H 176/86 H Pulse Oximetry 96 96 98 03/22/18 07:56 03/22/18 12:00 03/22/18 16:00 Temperature 97.6 F 98.4 F 97.8 F Pulse Rate 90 84 79 Respiratory Rate 18 18 20 Blood Pressure 156/103 H 140/81 164/89 H Pulse Oximetry 94 L 97 97 Intake & Output 03/21/18 03/22/18 03/22/18 18:59 06:59 18:59 Intake Total 720 / 720 780 / 780 840 / 840 Output Total 1000 / 1000 700 / 700 Balance 720 / 720 -220 / -220 140 / 140 Weight 99 kg Intake: IV 100 / 100 Levaquin 500 mg Premix Inj 500 100 / 100 mg In 100 ml @ 100 mls/hr IV. SIG Q24H [facility] Rx#:[id number] Oral 620 / 620 780 / 780 840 / 840 Output: Urine 1000 / 1000 700 / 700 Other: # Voids 3 Date of Last Bowel Movement 03/20/18 # Bowel Movements 0 0 Narrative: Gen.: No acute distress Head: Normocephalic. Atraumatic. EENT: Pupils equal round and reactive to light. Nose without drainage. Airway intact. Throat without injection. Cardiovascular: Regular rate and rhythm. No murmurs, rubs or gallops. Respiratory: Lungs clear to auscultation bilaterally. No wheezes or rhonchi. Abdomen: Soft, nontender, nondistended. No peritoneal signs. Musculoskeletal: No gross deformities. No edema. Skin: No obvious rashes or erythema. Neuro: Sensory and motor grossly intact. Cranial nerves II through XII grossly intact. - Urinary Catheter Management Indwelling Urethral Catheter Cath placed during this visit: no Results - Labs CBC & Chem 7: 03/17/18 10:00 03/17/18 10:00 Assessment and Plan - Plan 1. UTI ID specialist UTI, E Coli positive pansensitive, Gram positive Bacteremia Staph Hominis 07/29 Bottles no clinical significance changed Ceftriaxone to Levaquin and okay to discharge from ID specialist standpoint, will need traffic incident management manager for discharge if not possible during the weekend on Wednesday. will need to complete 14 days through 02/26, on Levaquin by mouth or Cipro 500 mg BID. 2. Bacteremia secondary to Gram Negative Bacilli now on Levaquin. 3. Acute Kidney injury Improved. 4. Schizophrenia/Depression continue home medicines. 5. Physical Deconditioning working with PT every day 6. Hypertension uncontrolled continue amlodipine. DVT prophylaxis with Heparin consult PT and traffic incident management manager. Code Status: Full Code. Discussed Condition With: Patient and Nurse. Discharge Planning: Okay to discharge from medicine standpoint, she will need Rehab but has no insurance so as per K[employer] Tier will need to be inhouse until walking better.
[2018-03-23] MEDS: Heparin - SQ 10,000 UNITS/ML Vial SQ SCH ×2 (08:58→20:53)
[2018-03-23] MEDS: Senna/Docusate Sodium 8.6/50 MG Tablet PO SCH ×2 (08:58→20:52)
[2018-03-23] MEDS: amLODIPine 5 MG Tablet PO SCH (08:59)
--- NOTE | 2018-03-23 17:35 | P.PN ---
Subjective Interval history: This is a pleasant 57 y/o Female with Schizophrenia, Depression, seen in ER due to Generalized Weakness, fever cough, nausea and malaise, Dizziness and lightheadedness, No chest pain or shortness of breath. No abdominal pain. No dysuria or frequency. No lateralizing signs/symptoms. seen her Microbiology test and has E Coli in her Urine Gram Positive cocci one bottle may be a contamination but her blood culture for Gram Negative has two bottles only one needed for Bacteremia, I started her on Vancomycin and Cefepime, consult ID specialist and will need to repeat blood cultures and discontinued Ceftriaxone. 03/18: Seen by ID specialist recommended for her Gram negative to continue Ceftriaxone, patient stable in her bedroom continue PT on daily bases and awaiting final by ID specialist for discharge. 03/19: Stable in her bedroom, no complaint by patient, no nausea, vomit or diarrhea, working with Physical Therapy as per ID specialist UTI, E Coli positive pansensitive, Gram positive Bacteremia Staph Hominis / Bottles no clinical significance changed Ceftriaxone to Levaquin and okay to discharge from ID specialist standpoint, will need business support manager for discharge if not possible during the weekend on Wednesday. will need to complete 14 days through 02/26, on Levaquin by mouth or Cipro 500 mg BID. 03/20: Seen in her bedroom, will go to Rehab facility discussed with nurse Miss Lemon she is having Uncontrolled blood pressure and is not on IV fluids, added Amlodipine and will need to follow in Rehab facility. 03/21: Discussed with patient and Nurse Miss Glez and with Physical therapy not yet ready for discharge, she needed two persons assist today, she has discharge order to Rehab but no Insurance to send her to SNF, will need to continue Rehabilitation in house 03/22: seen in her bedroom, discussed with nurse and on MDR. she is alert and oriented x 3, so I don't think she has Neurological issues, she had an MRI of the Brain recently. follow if there is any improvement with Physical Therapy otherwise will need Neurology consult, and studies again. 03/23: Stable in her bedroom, continue working with Physical therapy, not yet at goal to go home, not able to discharge to SNF due to lack of insurance. no nausea, vomit or diarrhea. Physical Exam Vital signs: Vital Signs 03/22/18 20:00 03/23/18 00:00 03/23/18 08:00 Temperature 97.8 F 98.6 F 97.6 F Pulse Rate 92 H 95 H 85 Respiratory Rate 20 20 17 Blood Pressure 146/78 H 161/90 H 164/89 H Pulse Oximetry 95 95 95 03/23/18 12:00 03/23/18 16:00 Temperature 98.0 F 97.9 F Pulse Rate 78 96 H Respiratory Rate 19 16 Blood Pressure 137/76 172/91 H Pulse Oximetry 98 94 L Intake & Output 03/22/18 03/23/18 03/23/18 18:59 06:59 18:59 Intake Total 940 / 940 Output Total 700 / 700 Balance 240 / 240 Weight 98.5 kg Intake: IV 100 / 100 Levaquin 500 mg Premix Inj 500 100 / 100 mg In 100 ml @ 100 mls/hr IV. SIG Q24H [facility] Rx#:[id number] Oral 840 / 840 Output: Urine 700 / 700 Other: Date of Last Bowel Movement 03/23/18 03/23/18 # Bowel Movements 0 Narrative: Gen.: No acute distress Head: Normocephalic. Atraumatic. EENT: Pupils equal round and reactive to light. Nose without drainage. Airway intact. Throat without injection. Cardiovascular: Regular rate and rhythm. No murmurs, rubs or gallops. Respiratory: Lungs clear to auscultation bilaterally. No wheezes or rhonchi. Abdomen: Soft, nontender, nondistended. No peritoneal signs. Musculoskeletal: No gross deformities. No edema. Skin: No obvious rashes or erythema. Neuro: Sensory and motor grossly intact. Cranial nerves II through XII grossly intact. - Urinary Catheter Management Indwelling Urethral Catheter Cath placed during this visit: no Results - Labs CBC & Chem 7: 03/17/18 10:00 03/17/18 10:00 Assessment and Plan - Plan 1. UTI ID specialist UTI, E Coli positive pansensitive, Gram positive Bacteremia Staph Hominis 07/29 Bottles no clinical significance changed Ceftriaxone to Levaquin and okay to discharge from ID specialist standpoint, will need business support manager for discharge if not possible during the weekend on Wednesday. will need to complete 14 days through 02/26, on Levaquin by mouth or Cipro 500 mg BID. 2. Bacteremia secondary to Gram Negative Bacilli now on Levaquin. 3. Acute Kidney injury Improved. 4. Schizophrenia/Depression continue home medicines. 5. Physical Deconditioning working with PT every day 6. Hypertension uncontrolled increased Amlodipine to 10 mg daily, HCTZ 12.5 mg and Clonidine as needed for systolic blood pressure in 160 mm Hg. or over. DVT prophylaxis with Heparin consult PT and business support manager. Code Status: Full Code. Discussed Condition With: Patient, Nurse and MDR. Discharge Planning: Okay to discharge from medicine standpoint, she will need Rehab but has no insurance so as per Bun Icer will need to be inhouse until walking better.
[2018-03-23] MEDS ORDERED: amLODIPine 5 MG Tablet PO ONE (17:50)
[2018-03-23 18:39] LABS: Hematocrit 31.8 % (35.0-46.0); Hemoglobin 11.1 gm/dL (11.6-15.3); Mean Corpuscular HGB Conc 34.8 % (32.0-36.0); Mean Corpuscular Hemoglobin 38.5 pg (27.0-34.0); Mean Corpuscular Volume 110.6 fL (80.0-100.0); Mean Platelet Volume 9.1 fL (7.0-11.0); Platelet Count 268 th/mm3 (150-450); Red Blood Count 2.87 mil/mm3 (4.00-5.30); Red Cell Distribution Width 17.3 % (11.6-17.2); White Blood Count 5.2 th/mm3 (4.0-11.0)
[2018-03-23 18:58] LABS: Calcium 7.4 mg/dL (8.5-10.1); Carbon Dioxide 24.2 meq/L (21.0-32.0); Phosphorus 1.9 mg/dL (2.5-4.9); Potassium 3.6 meq/L (3.5-5.1)
[2018-03-23 19:10] LABS: Total Protein 6.7 g/dL (6.4-8.2)
[2018-03-24] MEDS: amLODIPine 10 MG Tablet PO SCH (08:44)
[2018-03-24] MEDS: levoFLOXacin 500 MG Tablet PO SCH (08:44)
[2018-03-24] MEDS: Senna/Docusate Sodium 8.6/50 MG Tablet PO SCH ×2 (08:44→21:30)
[2018-03-24] MEDS: Heparin - SQ 10,000 UNITS/ML Vial SQ SCH ×2 (08:47→21:30)
--- NOTE | 2018-03-24 13:57 | P.PN ---
Subjective Interval history: This is a pleasant 57 y/o Female with Schizophrenia, Depression, seen in ER due to Generalized Weakness, fever cough, nausea and malaise, Dizziness and lightheadedness, No chest pain or shortness of breath. No abdominal pain. No dysuria or frequency. No lateralizing signs/symptoms. seen her Microbiology test and has E Coli in her Urine Gram Positive cocci one bottle may be a contamination but her blood culture for Gram Negative has two bottles only one needed for Bacteremia, I started her on Vancomycin and Cefepime, consult ID specialist and will need to repeat blood cultures and discontinued Ceftriaxone. 03/18: Seen by ID specialist recommended for her Gram negative to continue Ceftriaxone, patient stable in her bedroom continue PT on daily bases and awaiting final by ID specialist for discharge. 03/19: Stable in her bedroom, no complaint by patient, no nausea, vomit or diarrhea, working with Physical Therapy as per ID specialist UTI, E Coli positive pansensitive, Gram positive Bacteremia Staph Hominis 07/29 Bottles no clinical significance changed Ceftriaxone to Levaquin and okay to discharge from ID specialist standpoint, will need recruiting manager for discharge if not possible during the weekend on Wednesday. will need to complete 14 days through 02/26, on Levaquin by mouth or Cipro 500 mg BID. 03/20: Seen in her bedroom, will go to Rehab facility discussed with nurse Miss Lemon she is having Uncontrolled blood pressure and is not on IV fluids, added Amlodipine and will need to follow in Rehab facility. 03/21: Discussed with patient and Nurse Miss Munozah and with Physical therapy not yet ready for discharge, she needed two persons assist today, she has discharge order to Rehab but no Insurance to send her to SNF, will need to continue Rehabilitation in house 03/22: seen in her bedroom, discussed with nurse and on MDR. she is alert and oriented x 3, so I don't think she has Neurological issues, she had an MRI of the Brain recently. follow if there is any improvement with Physical Therapy otherwise will need Neurology consult, and studies again. 03/23: Stable in her bedroom, continue working with Physical therapy, not yet at goal to go home, not able to discharge to SNF due to lack of insurance. 03/24: Patient working with PT, no nausea, vomit or diarrhea, awaiting to be able to walk to send her home. Physical Exam Vital signs: Vital Signs 03/23/18 16:00 03/24/18 00:00 03/24/18 05:00 Temperature 97.9 F 98.0 F 97.5 F L Pulse Rate 96 H 84 83 Respiratory Rate 16 16 15 Blood Pressure 172/91 H 133/62 158/97 H Pulse Oximetry 94 L 92 L 93 L 03/24/18 08:00 03/24/18 12:00 Temperature 97.4 F L 97.7 F Pulse Rate 70 78 Respiratory Rate 16 17 Blood Pressure 137/65 151/70 H Pulse Oximetry 93 L 94 L Intake & Output 03/23/18 03/24/18 03/24/18 18:59 06:59 18:59 Intake Total 500 / 500 1500 / 1500 Output Total 1999 Balance 500 / 500 -500 / -500 Weight 95.6 kg Intake: Oral 500 / 500 1500 / 1500 Output: Urine 1999 Other: # Voids 5 Date of Last Bowel Movement 03/23/18 03/23/18 # Bowel Movements 1 1 Narrative: Gen.: No acute distress Head: Normocephalic. Atraumatic. EENT: Pupils equal round and reactive to light. Nose without drainage. Airway intact. Throat without injection. Cardiovascular: Regular rate and rhythm. No murmurs, rubs or gallops. Respiratory: Lungs clear to auscultation bilaterally. No wheezes or rhonchi. Abdomen: Soft, nontender, nondistended. No peritoneal signs. Musculoskeletal: No gross deformities. No edema. Skin: No obvious rashes or erythema. Neuro: Sensory and motor grossly intact. Cranial nerves II through XII grossly intact. - Urinary Catheter Management Indwelling Urethral Catheter Cath placed during this visit: no Results - Labs CBC & Chem 7: 03/23/18 18:14 03/23/18 18:14 Laboratory Results - last 24 hr 03/23/18 03/23/18 03/23/18 18:14 18:14 18:14 WBC 5.2 RBC 2.87 L Hgb 11.1 L Hct 31.8 L MCV 110.6 H MCH 38.5 H MCHC 34.8 RDW 17.3 H Plt Count 268 D MPV 9.1 Sodium 140 Potassium 3.6 Chloride 106 Carbon Dioxide 24.2 Anion Gap 10 BUN 7 Creatinine 0.75 Estimated GFR 80 L Random Glucose 92 Calcium 7.4 L* Prot Corrected Calcium 7.6 L Phosphorus 1.9 L Magnesium 1.4 L Total Protein 6.7 Assessment and Plan - Plan 1. UTI ID specialist UTI, E Coli positive pansensitive, Gram positive Bacteremia Staph Hominis 07/29 Bottles no clinical significance changed Ceftriaxone to Levaquin and okay to discharge from ID specialist standpoint, will need recruiting manager for discharge if not possible during the weekend on Wednesday. will need to complete 14 days through 02/26, on Levaquin by mouth or Cipro 500 mg BID. 2. Bacteremia secondary to Gram Negative Bacilli now on Levaquin. 3. Acute Kidney injury Improved. 4. Schizophrenia/Depression continue home medicines. 5. Physical Deconditioning working with PT every day 6. Hypertension uncontrolled increased Amlodipine to 10 mg daily, HCTZ 12.5 mg and Clonidine as needed added Lisinopril 10 mg today and following. DVT prophylaxis with Heparin consult PT and recruiting manager. No changes to anterior assessment. Code Status: full Code. Discussed Condition With: Patient and nurse Mr. Ca Discharge Planning: Okay to discharge from medicine standpoint, she will need Rehab but has no insurance so as per Manager Lvn will need to be inhouse until walking better.
[2018-03-24] MEDS: Lisinopril 10 MG Tablet PO SCH (14:51)
[2018-03-25] MEDS: Lisinopril 10 MG Tablet PO SCH (09:02)
[2018-03-25] MEDS: amLODIPine 10 MG Tablet PO SCH (09:03)
[2018-03-25] MEDS: Heparin - SQ 10,000 UNITS/ML Vial SQ SCH ×3 (09:03→21:18)
[2018-03-25] MEDS: Senna/Docusate Sodium 8.6/50 MG Tablet PO SCH ×2 (09:03→20:06)
[2018-03-25] MEDS: levoFLOXacin 500 MG Tablet PO SCH (09:04)
--- NOTE | 2018-03-25 13:07 | P.PN ---
Subjective Interval history: This is a pleasant 57 y/o Female with Schizophrenia, Depression, seen in ER due to Generalized Weakness, fever cough, nausea and malaise, Dizziness and lightheadedness, No chest pain or shortness of breath. No abdominal pain. No dysuria or frequency. No lateralizing signs/symptoms. seen her Microbiology test and has E Coli in her Urine Gram Positive cocci one bottle may be a contamination but her blood culture for Gram Negative has two bottles only one needed for Bacteremia, I started her on Vancomycin and Cefepime, consult ID specialist and will need to repeat blood cultures and discontinued Ceftriaxone. 03/18: Seen by ID specialist recommended for her Gram negative to continue Ceftriaxone, patient stable in her bedroom continue PT on daily bases and awaiting final by ID specialist for discharge. 03/19: Stable in her bedroom, no complaint by patient, no nausea, vomit or diarrhea, working with Physical Therapy as per ID specialist UTI, E Coli positive pansensitive, Gram positive Bacteremia Staph Hominis 07/29 Bottles no clinical significance changed Ceftriaxone to Levaquin and okay to discharge from ID specialist standpoint, will need grain manager for discharge if not possible during the weekend on Wednesday. will need to complete 14 days through 02/26, on Levaquin by mouth or Cipro 500 mg BID. 03/20: Seen in her bedroom, will go to Rehab facility discussed with nurse Miss Lemon she is having Uncontrolled blood pressure and is not on IV fluids, added Amlodipine and will need to follow in Rehab facility. 03/21: Discussed with patient and Nurse Miss Munozah and with Physical therapy not yet ready for discharge, she needed two persons assist today, she has discharge order to Rehab but no Insurance to send her to SNF, will need to continue Rehabilitation in house 03/22: seen in her bedroom, discussed with nurse and on MDR. she is alert and oriented x 3, so I don't think she has Neurological issues, she had an MRI of the Brain recently. follow if there is any improvement with Physical Therapy otherwise will need Neurology consult, and studies again. 03/23: Stable in her bedroom, continue working with Physical therapy, not yet at goal to go home, not able to discharge to SNF due to lack of insurance. 03/24: Patient working with PT, no nausea, vomit or diarrhea, awaiting to be able to walk to send her home. 03/25 : In the chair doesn't appear in distress. No fever or chills. No n/v/d/c. Denies chest pain. Working with PT to improve. CM is working as well for DC plan Physical Exam Vital signs: Vital Signs 03/24/18 16:00 03/24/18 20:00 03/24/18 21:15 Temperature 97.9 F 97.9 F Pulse Rate 80 73 Respiratory Rate 18 Blood Pressure 161/88 H 159/81 H Pulse Oximetry 97 94 L 03/25/18 00:00 03/25/18 04:00 03/25/18 08:00 Temperature 98 F 97.8 F 97.8 F Pulse Rate 76 76 77 Respiratory Rate 18 Blood Pressure 132/78 127/76 146/87 H Pulse Oximetry 95 95 97 03/25/18 12:00 Temperature 97.8 F Pulse Rate 79 Respiratory Rate 19 Blood Pressure 169/90 H Pulse Oximetry 96 Intake & Output 03/24/18 03/25/18 03/25/18 18:59 06:59 18:59 Intake Total 480 / 480 Balance 480 / 480 Intake: Oral 480 / 480 Other: # Voids 3 Date of Last Bowel Movement 03/23/18 03/23/18 Narrative: Gen.: Pleasant 57 obese female, doesn't appear in acute distress. Cardiovascular: Regular rate and rhythm. No murmurs, rubs or gallops. Respiratory: Lungs clear to auscultation bilaterally. No wheezes or rhonchi. Abdomen: Soft, obese, nontender, nondistended. No peritoneal signs. Musculoskeletal: No gross deformities. No edema. Skin: No obvious rashes or erythema. Neuro: Sensory and motor grossly intact. Cranial nerves II through XII grossly intact. - Urinary Catheter Management Indwelling Urethral Catheter Cath placed during this visit: no Results - Labs CBC & Chem 7: 03/23/18 18:14 03/23/18 18:14 Assessment and Plan - Plan 1. UTI ID specialist UTI, E Coli positive pansensitive, Gram positive Bacteremia Staph Hominis 07/29 Bottles no clinical significance changed Ceftriaxone to Levaquin and okay to discharge from ID specialist standpoint, will need grain manager for discharge if not possible during the weekend on Wednesday. will need to complete 14 days through 02/26, on Levaquin by mouth or Cipro 500 mg BID. 2. Bacteremia secondary to Gram Negative Bacilli now on Levaquin. 3. Acute Kidney injury Improved. 4. Schizophrenia/Depression continue home medicines. 5. Physical Deconditioning working with PT every day 6. Hypertension uncontrolled increased Amlodipine to 10 mg daily, HCTZ 12.5 mg and Clonidine as needed added Lisinopril 10 mg today and following. DVT prophylaxis with Heparin consult PT and grain manager. No changes to anterior assessment. Code Status: full Code. Discussed Condition With: Patient and nurse Mr. Ca Discharge Planning: Okay to discharge from medicine standpoint, she will need Rehab but has no insurance so as per Welder 2Nd Shift will need to be inhouse until walking better.
[2018-03-26] MEDS: amLODIPine 10 MG Tablet PO SCH (08:38)
[2018-03-26] MEDS: levoFLOXacin 500 MG Tablet PO SCH (08:38)
[2018-03-26] MEDS: Lisinopril 10 MG Tablet PO SCH (08:39)
[2018-03-26] MEDS: Heparin - SQ 10,000 UNITS/ML Vial SQ SCH ×2 (08:39→21:38)
[2018-03-26] MEDS: Senna/Docusate Sodium 8.6/50 MG Tablet PO SCH ×2 (08:40→21:39)
--- NOTE | 2018-03-26 15:48 | P.PN ---
Subjective Interval history: Ambulating in the hallways with physical therapy. Not clear for discharge by physical therapy might take 1 or 2 days for patient to improve. Patient otherwise has no complaints at this time. No chest pain or shortness of breath no nausea or vomiting no diarrhea constipation. Physical Exam Vital signs: Vital Signs 03/25/18 16:00 03/25/18 20:00 03/26/18 00:00 Temperature 97.2 F L 97.8 F 97.5 F L Pulse Rate 92 H 79 75 Respiratory Rate 18 17 Blood Pressure 141/83 H 159/78 H 139/63 Pulse Oximetry 92 L 94 L 94 L 03/26/18 04:00 03/26/18 08:00 03/26/18 12:00 Temperature 97.8 F 98.2 F 97.6 F Pulse Rate 76 71 82 Respiratory Rate 17 18 Blood Pressure 124/70 129/59 L 120/70 Pulse Oximetry 96 94 L 98 Intake & Output 03/25/18 03/26/18 03/26/18 18:59 06:59 18:59 Intake Total 480 / 480 Balance 480 / 480 Intake: Oral 480 / 480 Other: # Voids 3 Date of Last Bowel Movement 03/25/18 03/23/18 03/25/18 Narrative: Gen.: Pleasant 57 obese female, doesn't appear in acute distress. Cardiovascular: Regular rate and rhythm. No murmurs, rubs or gallops. Respiratory: Lungs clear to auscultation bilaterally. No wheezes or rhonchi. Abdomen: Soft, obese, nontender, nondistended. No peritoneal signs. Musculoskeletal: No gross deformities. No edema. Skin: No obvious rashes or erythema. Neuro: Sensory and motor grossly intact. Cranial nerves II through XII grossly intact. - Urinary Catheter Management Indwelling Urethral Catheter Cath placed during this visit: no Results - Labs CBC & Chem 7: 03/23/18 18:14 03/23/18 18:14 Assessment and Plan - Plan 1. UTI ID specialist UTI, E Coli positive pansensitive, Gram positive Bacteremia Staph Hominis 07/29 Bottles no clinical significance changed Ceftriaxone to Levaquin and okay to discharge from ID specialist standpoint, will need donor relations manager for discharge if not possible during the weekend on Wednesday. will need to complete 14 days through 02/26, on Levaquin by mouth or Cipro 500 mg BID. 2. Bacteremia secondary to Gram Negative Bacilli now on Levaquin. 3. Acute Kidney injury Improved. 4. Schizophrenia/Depression continue home medicines. 5. Physical Deconditioning working with PT every day 6. Hypertension uncontrolled increased Amlodipine to 10 mg daily, HCTZ 12.5 mg and Clonidine as needed added Lisinopril 10 mg today and following. DVT prophylaxis with Heparin consult PT and donor relations manager. No changes to anterior assessment. Code Status: full Code. Discussed Condition With: Patient and nurse Mr. Ca Discharge Planning: Okay to discharge from medicine standpoint, she will need Rehab but has no insurance so as per Lab Rep will need to be inhouse until walking better.
--- NOTE | 2018-03-27 09:21 | P.PN ---
Subjective Interval history: In bed appears in nad. No fever or chills She is feeling tired today and she was not progressing with PT today well. Has some pain in her legs. There is no swelling. No other complaints. Physical Exam Vital signs: Vital Signs 03/26/18 12:00 03/26/18 16:00 03/26/18 20:00 Temperature 97.6 F 98.0 F 97.9 F Pulse Rate 82 83 77 Respiratory Rate 18 19 20 Blood Pressure 120/70 151/110 H 113/65 Pulse Oximetry 98 95 96 03/27/18 00:00 03/27/18 04:00 03/27/18 08:00 Temperature 97.7 F 98.5 F 98.0 F Pulse Rate 78 80 67 Respiratory Rate 20 20 17 Blood Pressure 121/53 L 104/59 L 109/57 L Pulse Oximetry 96 95 93 L Intake & Output 03/26/18 03/27/18 03/27/18 18:59 06:59 18:59 Intake Total 720 / 720 240 / 240 Balance 720 / 720 240 / 240 Weight 89.7 kg Intake: Oral 720 / 720 240 / 240 Other: # Voids 4 4 Date of Last Bowel Movement 03/25/18 03/26/18 Narrative: Gen.: Pleasant 57 obese female, doesn't appear in acute distress. Cardiovascular: Regular rate and rhythm. No murmurs, rubs or gallops. Respiratory: Lungs clear to auscultation bilaterally. No wheezes or rhonchi. Abdomen: Soft, obese, nontender, nondistended. No peritoneal signs. Musculoskeletal: No gross deformities. No edema. Skin: No obvious rashes or erythema. Neuro: Sensory and motor grossly intact. Cranial nerves II through XII grossly intact. - Urinary Catheter Management Indwelling Urethral Catheter Cath placed during this visit: no Results - Labs CBC & Chem 7: 03/23/18 18:14 03/23/18 18:14 Assessment and Plan - Plan 1. UTI ID specialist UTI, E Coli positive pansensitive, Gram positive Bacteremia Staph Hominis 07/29 Bottles no clinical significance changed Ceftriaxone to Levaquin and okay to discharge from ID specialist standpoint, will need educational manager for discharge if not possible during the weekend on Wednesday. will need to complete 14 days through 02/26, on Levaquin by mouth or Cipro 500 mg BID. 2. Bacteremia secondary to Gram Negative Bacilli now on Levaquin. 3. Acute Kidney injury Improved. 4. Schizophrenia/Depression continue home medicines. 5. Physical Deconditioning working with PT every day 6. Hypertension uncontrolled increased Amlodipine to 10 mg daily, HCTZ 12.5 mg and Clonidine as needed added Lisinopril 10 mg today and following. /2 feels tired today and soem pain in her legs . Check labs cbc, bmp and mag DVT prophylaxis with Heparin consult PT and educational manager. No changes to anterior assessment. Code Status: full Code. Discussed Condition With: Patient and nurse Mr. Ca Discharge Planning: Okay to discharge from medicine standpoint, she will need Rehab but has no insurance so as per Rv Mechanic will need to be inhouse until walking better.
[2018-03-27] MEDS: levoFLOXacin 500 MG Tablet PO SCH (11:09)
[2018-03-27] MEDS: amLODIPine 10 MG Tablet PO SCH (11:09)
[2018-03-27] MEDS: Lisinopril 10 MG Tablet PO SCH (11:09)
[2018-03-27] MEDS: Heparin - SQ 10,000 UNITS/ML Vial SQ SCH ×2 (11:10→20:52)
[2018-03-27] MEDS: Senna/Docusate Sodium 8.6/50 MG Tablet PO SCH ×2 (11:10→20:52)
[2018-03-28 07:43] LABS: Baso % (Auto) 0.8 % (0.0-2.0); Hematocrit 34.6 % (35.0-46.0); Hemoglobin 11.7 gm/dL (11.6-15.3); Lymph # (Auto) 1.2 th/mm3 (1.0-4.8); Lymph % (Auto) 25.3 % (9.0-44.0); Mean Corpuscular HGB Conc 33.9 % (32.0-36.0); Mean Corpuscular Hemoglobin 37.2 pg (27.0-34.0); Mean Corpuscular Volume 109.9 fL (80.0-100.0); Mean Platelet Volume 10.4 fL (7.0-11.0); Mono # (Auto) 0.5 th/mm3 (0.0-0.9); Mono % (Auto) 10.1 % (0.0-8.0); Neut # (Auto) 2.9 th/mm3 (1.8-7.7); Neut % (Auto) 62.8 % (16.0-70.0); Platelet Count 222 th/mm3 (150-450); Red Blood Count 3.15 mil/mm3 (4.00-5.30); Red Cell Distribution Width 16.9 % (11.6-17.2); White Blood Count 4.6 th/mm3 (4.0-11.0)
[2018-03-28 07:45] LABS: Magnesium 1.8 mg/dL (1.5-2.5); Potassium 3.3 meq/L (3.5-5.1)
[2018-03-28 07:47] LABS: Phosphorus 4.6 mg/dL (2.5-4.9)
[2018-03-28] MEDS: Lisinopril 10 MG Tablet PO SCH (08:08)
[2018-03-28] MEDS: amLODIPine 10 MG Tablet PO SCH (08:09)
[2018-03-28] MEDS: levoFLOXacin 500 MG Tablet PO SCH (08:09)
[2018-03-28] MEDS: Heparin - SQ 10,000 UNITS/ML Vial SQ SCH ×2 (08:09→20:47)
[2018-03-28] MEDS: Senna/Docusate Sodium 8.6/50 MG Tablet PO SCH ×2 (08:10→20:47)
--- NOTE | 2018-03-28 13:06 | P.PN ---
Subjective Interval history: Feels much better today Eating better today K low replaced. Other electrolytes normal Says she is improving with PT Physical Exam Vital signs: Vital Signs 03/27/18 16:00 03/27/18 20:00 03/28/18 00:00 Temperature 97.2 F L 97.6 F 98 F Pulse Rate 76 63 80 Respiratory Rate 17 20 20 Blood Pressure 109/68 125/66 110/54 L Pulse Oximetry 96 94 L 93 L 03/28/18 04:00 03/28/18 08:00 03/28/18 12:00 Temperature 97.9 F 98.0 F 96.6 F L Pulse Rate 77 76 80 Respiratory Rate 18 18 18 Blood Pressure 117/58 L 130/70 106/57 L Pulse Oximetry 93 L 94 L 96 Intake & Output 03/27/18 03/28/18 03/28/18 18:59 06:59 18:59 Intake Total 240 / 240 Balance 240 / 240 Weight 90 kg Intake: Oral 240 / 240 Other: # Voids 3 Date of Last Bowel Movement 03/27/18 03/27/18 - Urinary Catheter Management Indwelling Urethral Catheter Cath placed during this visit: no Results - Labs CBC & Chem 7: 03/28/18 06:38 03/28/18 06:38 Laboratory Results - last 24 hr 03/28/18 03/28/18 06:38 06:38 WBC 4.6 RBC 3.15 L Hgb 11.7 Hct 34.6 L MCV 109.9 H MCH 37.2 H MCHC 33.9 RDW 16.9 Plt Count 222 MPV 10.4 Neut % (Auto) 62.8 Lymph % (Auto) 25.3 [place] % (Auto) 10.1 H Eos % (Auto) 1.0 Baso % (Auto) 0.8 Neut # (Auto) 2.9 Lymph # (Auto) 1.2 [place] # (Auto) 0.5 Eos # (Auto) 0.0 Baso # (Auto) 0.0 WBC Differential . Differential Comment Auto diff final Sodium 137 Potassium 3.3 L Chloride 103 Carbon Dioxide 25.0 Anion Gap 9 BUN 21 H Creatinine 1.05 H Estimated GFR 54 L Random Glucose 107 H Calcium 9.0 Phosphorus 4.6 Magnesium 1.8 Assessment and Plan - Plan 1. UTI ID specialist UTI, E Coli positive pansensitive, Gram positive Bacteremia Staph Hominis 07/29 Bottles no clinical significance changed Ceftriaxone to Levaquin and okay to discharge from ID specialist standpoint, will need duty manager for discharge if not possible during the weekend on Wednesday. will need to complete 14 days through 02/26, on Levaquin by mouth or Cipro 500 mg BID. 2. Bacteremia secondary to Gram Negative Bacilli now on Levaquin. 3. Acute Kidney injury Improved. 4. Schizophrenia/Depression continue home medicines. 5. Physical Deconditioning working with PT every day 6. Hypertension uncontrolled increased Amlodipine to 10 mg daily, HCTZ 12.5 mg and Clonidine as needed added Lisinopril 10 mg today and following. 03/27 feels tired today and soem pain in her legs . Check labs cbc, bmp and mag DVT prophylaxis with Heparin consult PT and duty manager. No changes to anterior assessment. Code Status: full Code. Discussed Condition With: Patient and nurse Mr. Ca Discharge Planning: Okay to discharge from medicine standpoint, she will need Rehab but has no insurance so as per Acid Tender will need to be inhouse until walking better.
[2018-03-29] MEDS: amLODIPine 10 MG Tablet PO SCH (08:48)
[2018-03-29] MEDS: Lisinopril 10 MG Tablet PO SCH (08:48)
[2018-03-29] MEDS: levoFLOXacin 500 MG Tablet PO SCH (08:48)
[2018-03-29] MEDS: Senna/Docusate Sodium 8.6/50 MG Tablet PO SCH (08:48)
[2018-03-29] MEDS: Heparin - SQ 10,000 UNITS/ML Vial SQ SCH (08:49)
[2018-03-29 12:20] VITALS: RESP 16
--- NOTE | 2018-03-29 14:01 | P.PN ---
Physical Exam Vital signs: Vital Signs 03/28/18 16:00 03/28/18 20:00 03/29/18 00:00 Temperature 97.5 F L 97.4 F L 99.1 F Pulse Rate 68 60 75 Respiratory Rate 18 20 18 Blood Pressure 138/63 140/66 102/54 L Pulse Oximetry 95 95 93 L 03/29/18 00:36 03/29/18 04:00 03/29/18 08:00 Temperature 98 F 97.3 F L Pulse Rate 63 74 Respiratory Rate 20 18 17 Blood Pressure 102/53 L 129/73 Pulse Oximetry 95 95 03/29/18 12:00 Temperature 96.6 F L Pulse Rate 69 Respiratory Rate 16 Blood Pressure 98/65 L Pulse Oximetry 94 L Intake & Output 03/28/18 03/29/18 03/29/18 18:59 06:59 18:59 Intake Total 1000 / 1000 240 / 240 Balance 1000 / 1000 240 / 240 Weight 91 kg Intake: Oral 1000 / 1000 240 / 240 Other: # Voids 4 3 Date of Last Bowel Movement 03/27/18 03/27/18 - Urinary Catheter Management Indwelling Urethral Catheter Cath placed during this visit: no Results - Labs CBC & Chem 7: 03/28/18 06:38 03/28/18 06:38
--- NOTE | 2018-03-29 15:28 | P.DS ---
Date of admission: 03/16/18 02:26 Primary care physician: No Primary Care Physician Attending physician on discharge: Damion Murillo Anticipated date of discharge: 03/29/18 Brief History from admission: 57-year-old female with a past medical history significant for schizophrenia and depression presents the emergency department for the evaluation of generalized weakness. Patient reports that she has had fevers at home, slight cough, nausea and generalized malaise. She endorses dizziness and lightheadedness. No emesis or diarrhea. No chest pain or shortness of breath. No abdominal pain. No dysuria or frequency. No lateralizing signs/symptoms. DS: Medications - Discharge Medications Prescriptions: hydrocodone-acetaminophen 1 tab PO Q4H PRN #12 tab PRN Reason: Pain Scale 5 To 10 DS: Summary Hospital Course: 57-year-old female with past medical history significant for schizophrenia and depression who presented to the emergency department on 03/16 with generalized weakness, fevers, cough, nausea and generalized malaise. Patient was found to have a urinary tract infection with elevated lactic acid with concerns for possible early sepsis, blood cultures drawn and started on IV Rocephin. Patient also was noted to have elevated creatinine for which she was provided IV hydration. Blood cultures resulted positive for E. coli, treated with IV antibiotics and later transitioned to p.o. Levaquin. Patient has completed 14-day course today. Additionally her renal function has improved, physical therapy has worked with patient and her strength has also improved. She is seen and examined this morning resting in bed comfortably and appears to be in no acute distress. She denies any fevers, chills, nausea, vomiting, diarrhea, cough, shortness of breath or chest pain. She also denies any suprapubic pain or dysuria, agreeable with going home. Discussed with case management social worker who will be assisting with arranging home health nursing, physical therapy, and case management assistance at home. E-forced checked, no active controlled substance prescriptions recently filled. Rx for Sobieski provided. - Time Spent with Patient Total time spent providing and/or coordinating discharge services: Less than 30 minutes - Quality: VTE Deep Vein Thrombosis/Pulmonary Embolism Present on Admission: No Exam Vital signs: Vital Signs 03/28/18 16:00 03/28/18 20:00 03/29/18 00:00 Temperature 97.5 F L 97.4 F L 99.1 F Pulse Rate 68 60 75 Respiratory Rate 18 20 18 Blood Pressure 138/63 140/66 102/54 L Pulse Oximetry 95 95 93 L 03/29/18 00:36 03/29/18 04:00 03/29/18 08:00 Temperature 98 F 97.3 F L Pulse Rate 63 74 Respiratory Rate 20 18 17 Blood Pressure 102/53 L 129/73 Pulse Oximetry 95 95 03/29/18 12:00 Temperature 96.6 F L Pulse Rate 69 Respiratory Rate 16 Blood Pressure 98/65 L Pulse Oximetry 94 L Intake & Output 03/28/18 03/29/18 03/29/18 18:59 06:59 18:59 Intake Total 1000 / 1000 240 / 240 Balance 1000 / 1000 240 / 240 Weight 91 kg Intake: Oral 1000 / 1000 240 / 240 Other: # Voids 4 3 Date of Last Bowel Movement 03/27/18 03/27/18 Narrative: Gen.: Pleasant 57 obese female, doesn't appear in acute distress. Cardiovascular: Regular rate and rhythm. No murmurs, rubs or gallops. Respiratory: Lungs clear to auscultation bilaterally. No wheezes or rhonchi. Abdomen: Soft, obese, nontender, nondistended. Positive bowel sounds. Musculoskeletal: No gross deformities. No edema. Skin: No obvious rashes or erythema. Neuro: Sensory and motor grossly intact. Cranial nerves II through XII grossly intact. Results Procedures completed during hospitalization: None. - Impressions ITS Impressions Chest X-Ray 03/15/18 21:40 CONCLUSION: Chronic left lower lung subsegmental infiltrate. Discharge Plan - Discharge Disposition Patient Disposition: /Home Health Service - Discharge Condition Condition: Stable - Discharge Order Discharge Orders: Discharge Order (Routine); Ordered 03/20/18 Ordered By: Hector Garcia - Physicians Team Primary Care Provider: Primary Care Conchai,No Attending Provider: Damion Murillo Other Providers: Kalyani Diallo MD
--- NOTE | 2018-03-29 15:30 | P.DCO ---
- Physical Therapy Order: Evaluate and treat, Improve ambulation, Strength and gait training - Home Health Nursing Order: Medical education, Signs/symptoms of disease process - Psychology Department Chair Order: To provide: Community services - Certification I have seen patient Krystle Gabriel on 03/29/18. My clinical findings support the need for the requested home health care services because: Limited mobility due to disease progression, Deconditioned with increased weakness I certify that my clinical findings support that this patient is homebound because: Unsteady gait/balance
[2018-03-29 17:30] VITALS: BP 133/64; PULSE 62; TEMP 94.4; O2SAT 96
== END 2018-03-29 18:42 | disposition home health service (06) ==
LOC: NEPD 16:54 → NEDA 03-16 02:26 → NEDH 03-16 11:18 → N07 03-16 13:32
PROVIDERS: ADMIT Hospitalist; ATTEND Hospitalist